=== PATIENT | male | born 1960 | race African-American/Black ===

== ENCOUNTER 2017-05-05 08:12 | Outpatient (CLI) | payer MEDICARE, MEDICAID | END 2017-05-05 08:13 | disposition home or self-care (01) | LOC: DI 08:12 | PROVIDERS: ATTEND Internal Medicine Cardiovascular Disease | DX: I50.22 Chronic systolic (congestive) heart failure (principal); R91.8 Other nonspecific abnormal finding of lung field; M25.522 Pain in left elbow; M19.011 Primary osteoarthritis, right shoulder | CPT/HCPCS: 71046; 93306 ==

== ENCOUNTER 2017-05-05 09:11 | Outpatient (CLI) | payer MEDICARE, MEDICAID ==
--- NOTE | 2017-05-05 10:35 | XRAY Report ---
DATE OF SERVICE: 05/05/2017 TWO-VIEW CHEST: 05/05/2017 CLINICAL INDICATION: Chest pressure, pain. No previous chest x-rays available for comparison. FINDINGS: The cardiac silhouette is within normal limits. The lungs are clear. No effusion or pneumothorax is present. IMPRESSION: Normal chest. TD: 05/05/2017 11:34
--- NOTE | 2017-05-05 10:41 | XRAY Report ---
DATE OF SERVICE: 05/05/2017 TWO-VIEW RIGHT SHOULDER: 05/05/2017 CLINICAL INDICATION: Pain. FINDINGS: Frontal and lateral views of the right shoulder demonstrate posttraumatic changes of previous proximal humeral fracture. The humeral head is high riding, compatible with chronic rotator cuff tear. Degenerative changes are seen in the glenohumeral and acromioclavicular joints. IMPRESSION: Previous proximal humeral fracture, with posttraumatic changes and likely chronic rotator cuff tear. TD: 05/05/2017 11:35
--- NOTE | 2017-05-05 10:41 | XRAY Report ---
DATE OF SERVICE: 05/05/2017 TWO-VIEW LEFT ELBOW: 05/05/2017 CLINICAL INDICATION: Pain. FINDINGS: Frontal and lateral views of the left elbow demonstrate no evidence of fracture or dislocation. No effusion is present. No foreign body is seen in the soft tissues. A tiny olecranon enthesophyte is incidentally noted. IMPRESSION: No evidence of fracture. TD: 05/05/2017 11:37
== END 2017-05-05 09:12 | disposition home or self-care (01) ==
LOC: DI 09:11
PROVIDERS: ATTEND Family Medicine
DX: R91.8 Other nonspecific abnormal finding of lung field (principal); M25.522 Pain in left elbow; M19.011 Primary osteoarthritis, right shoulder
CPT/HCPCS: 71046

== ENCOUNTER 2017-05-12 12:01 | Outpatient (CLI) | payer MEDICARE, MEDICAID ==
--- NOTE | 2017-05-12 17:05 | CT Report ---
EXAM: RIGHT SHOULDER CT WITHOUT CONTRAST EXAM DATE: 05/12/2017 01:07 PM. CLINICAL HISTORY: Right anterior shoulder pain. Previous humeral fracture. COMPARISON: Right shoulder radiography from 05/05/2017. TECHNIQUE: Thin-section axial images were acquired of the shoulder without contrast. Post-processing: Oblique coronal and sagittal reformats. Other: None. In accordance with CT protocol optimization, one or more of the following dose reduction techniques w ere utilized for this exam: automated exposure control, adjustment of mA and/or KV based on patient s ize, or use of iterative reconstructive technique. FINDINGS: There is a chronic healed fracture, which involves the anatomic neck, superolateral aspect of the hum eral head, greater tuberosity, lesser tuberosity, bicipital groove, and surgical neck of the humerus. There is varus deformity at the surgical neck of the humerus. Slight cortical irregularity at the ar ticular surface of the humeral head. Small marginal osteophytes of the glenoid. Small subcortical cysts at the anterior and inferior aspec ts of the glenoid. No glenohumeral joint subluxation or effusion. Chondrocalcinosis at the glenohumeral joint. Acromioclavicular Region: The patient has a type II acromion. Mild acromioclavicular joint osteoarthr itis. Musculature: Normal. No fatty atrophy. Other: There is an approximately 6 x 4 mm calcified subpleural granuloma at the anterior aspect of th e right upper lobe. Tiny 2 mm granuloma at the lateral aspect of the right upper lobe. Small 4 mm non calcified nodule at the anterior lateral aspect of the right middle lobe area and there is a 5 mm non calcified nodule near the minor fissure of the right lung. There are four 3-4 mm noncalcified nodules also near the minor fissure of the right lung. There is a 6 x 3 mm noncalcified nodule at the superi or segment of the right lower lobe. IMPRESSION: 1. Chronic healed fracture involving the anatomic neck, surgical neck, humeral head, greater tuberosi ty, lesser tuberosity, and bicipital groove of the proximal humerus. There is residual varus deformit y at the surgical neck of the humerus. Residual slight cortical irregularity at the articular surface of the humeral head. 2. Degenerative osteophytes and subcortical cysts at the glenoid. Chondrocalcinosis at the glenohumer al joint. 3. Incidental finding of multiple calcified and noncalcified nodules at the right lung, which most li yeimi represent granulomas. [facility]CULOSKE[facility] SECTION Referring Provider Line: [phone] SITE ID: [id number]
== END 2017-05-12 12:02 | disposition home or self-care (01) ==
LOC: DI 12:01
PROVIDERS: ATTEND Orthopaedic Surgery
DX: M21.821 Other specified acquired deformities of right upper arm (principal); M19.011 Primary osteoarthritis, right shoulder; M11.211 Other chondrocalcinosis, right shoulder

== ENCOUNTER 2017-05-18 08:18 | Outpatient (CLI) | payer MEDICARE, MEDICAID ==
[2017-05-18 13:06] LABS: BASOPHILS # (AUTO) 0.1 10^3/uL (0.0-0.1); BASOPHILS % (AUTO) 3.1 %; EOSINOPHILS # (AUTO) 0.2 10^3/uL (0.0-0.7); EOSINOPHILS % (AUTO) 5.1 %; HGB - HEMOGLOBIN 13.4 g/dL (14.0-18.0); LYMPHOCYTES # (AUTO) 1.2 10^3/uL (1.5-3.5); LYMPHOCYTES % (AUTO) 24.5 %; MEAN CORPUSCULAR HEMOGLOBIN 29.6 pg (27.0-31.0); MEAN CORPUSCULAR HGB CONC 34.4 g/dL (32.0-36.0); MEAN PLATELET VOLUME 8.6 fL (7.4-11.4); MONOCYTES # (AUTO) 0.5 10^3/uL (0.0-1.0); MONOCYTES % (AUTO) 10.2 %; NEUTROPHILS # (AUTO) 2.7 10^3/uL (1.5-6.6); NEUTROPHILS % (AUTO) 57.1 %; PLT - PLATELET COUNT 179 10^3/uL (130-450); RED BLOOD COUNT 4.53 10^6/uL (4.70-6.10); RED CELL DISTRIBUTION WIDTH 12.6 % (12.0-15.0); WHITE BLOOD COUNT 4.7 x10^3/uL (4.8-10.8)
[2017-05-18 13:26] LABS: ALBUMIN/GLOBULIN RATIO 1.2 (1.0-2.2); ALKALINE PHOSPHATASE 61 IU/L (42-121); ALT ALANINE AMINOTRANSFERASE 35 IU/L (10-60); AST ASPARTATE AMINOTRANSFERASE 33 IU/L (10-42); BILIRUBIN,TOTAL 0.7 mg/dL (0.2-1.0); BUN - BLOOD UREA NITROGEN 9 mg/dL (6-20); CALCIUM 9.1 mg/dL (8.5-10.3); CARBON DIOXIDE - CO2 25 mmol/L (21-32); CHLORIDE 98 mmol/L (101-111); CHOL/HDL RATIO 3.8 (<5.0); CHOLESTEROL 145 mg/dL; GFR - MDRD 94 (>89); GLUCOSE 112 mg/dL (70-100); HDL CHOLESTEROL 38 mg/dL; LDL CHOLESTEROL,CALCULATED 77 mg/dL; SODIUM 131 mmol/L (135-145); TOTAL PROTEIN 7.4 g/dL (6.7-8.2); URIC ACID 8.3 mg/dL (2.6-7.2); VLDL CHOLESTEROL 30 mg/dL
== END 2017-05-18 08:19 | disposition home or self-care (01) ==
LOC: LAB.N 08:18
PROVIDERS: ATTEND Family Medicine
DX: E66.9 Obesity, unspecified (principal); I50.9 Heart failure, unspecified; M19.90 Unspecified osteoarthritis, unspecified site; R93.8 Abnormal findings on diagnostic imaging of other specified body structures; Z79.01 Long term (current) use of anticoagulants
CPT/HCPCS: 36415; 80053; 80061; 83721; 84443; 84550; 85025

== ENCOUNTER 2017-06-17 10:51 | Outpatient (CLI) | payer MEDICARE ==
--- NOTE | 2017-06-17 15:49 | XRAY Report ---
THREE VIEW LUMBAR SPINE: 06/17/2017 CLINICAL INDICATION: Pain. FINDINGS: AP, lateral, coned down views of the lumbar spine demonstrate moderate degenerative disk and facet disease, with disk space narrowing worst at L4-L5. There is no evidence of compression fracture. The bowel gas pattern is normal. IMPRESSION: MODERATE DEGENERATIVE CHANGES. TD: 06/17/2017 15:48
== END 2017-06-17 10:52 | disposition home or self-care (01) ==
LOC: DI.N 10:51
PROVIDERS: ATTEND Family Medicine
DX: M51.36 Other intervertebral disc degeneration, lumbar region (principal); M47.896 Other spondylosis, lumbar region
CPT/HCPCS: 72100

== ENCOUNTER 2017-10-07 11:42 | Outpatient (CLI) | payer MEDICARE, MEDICAID ==
--- NOTE | 2017-10-07 12:39 | XRAY Report ---
Procedure Date: 10/07/2017 Accession Number: [id number] / [id number] Procedure: XRN - Knee 3 View RT CPT Code: FULL RESULT: EXAM: Knee 3 View RT DATE: 10/07/2017 11:55 AM CLINICAL HISTORY: KNEE PAIN, RIGHT COMPARISON: None. TECHNIQUE: 3 views. FINDINGS: Bones: No fracture. Joints: Moderately large suprapatellar effusion. Advanced tricompartmental degenerative change with joint space narrowing, sclerosis, and spurring. Soft Tissues: Vascular calcification. IMPRESSION: Advanced tricompartmental degenerative change right knee with moderately large suprapatellar effusion. [facility]
== END 2017-10-07 11:43 | disposition home or self-care (01) ==
LOC: DI.N 11:42
PROVIDERS: ATTEND Family Medicine
DX: M17.11 Unilateral primary osteoarthritis, right knee (principal); M25.461 Effusion, right knee

== ENCOUNTER 2017-10-25 09:30 | Outpatient (CLI) | payer MEDICARE, MEDICAID ==
[2017-10-25 13:57] LABS: HB2 TOTAL 14.3 g/dL; HEMOGLOBIN A1C 0.53 g/dL; HEMOGLOBIN A1C % 5.5 % (4.6-6.2)
[2017-10-25 14:13] LABS: CALCIUM 9.1 mg/dL (8.5-10.3); CREATININE 1.1 mg/dL (0.6-1.2)
== END 2017-10-25 09:31 | disposition home or self-care (01) ==
LOC: LAB.N 09:30
PROVIDERS: ATTEND Family Medicine
DX: R73.01 Impaired fasting glucose (principal); E66.9 Obesity, unspecified; I50.9 Heart failure, unspecified
CPT/HCPCS: 36415; 80048; 83036

== ENCOUNTER 2018-01-25 13:37 | Emergency (ER) | payer MEDICARE, MEDICAID ==
[2018-01-25] MEDS ORDERED: PHENYLEPHRINE 10 MG/ML VIAL IC STA (15:14)
[2018-01-25 15:39] LABS: BILIRUBIN,URINE NEGATIVE (NEGATIVE); GLUCOSE, URINE (UA) NEGATIVE (NEGATIVE); KETONES,URINE (UA) NEGATIVE (NEGATIVE); LEUKOCYTE ESTERASE, URINE NEGATIVE (NEGATIVE); NITRITE,URINE NEGATIVE (NEGATIVE); OCCULT BLOOD,URINE SMALL (NEGATIVE); PROTEIN,URINE NEGATIVE (NEGATIVE); UROBILINOGEN,URINE 0.2 (NORMAL) E.U./dL (NORMAL)
[2018-01-25 15:47] LABS: BACTERIA,URINE None Seen /HPF (None Seen); CLARITY,URINE CLEAR (CLEAR); SQUAMOUS EPITHELIAL CELL,UR NONE SEEN (<= Few)
--- NOTE | 2018-01-25 17:59 | ED Physician Documentation ---
History of Present Illness - Stated complaint Stated Complaint: MALE - Chief complaint Chief Complaint: General - History obtained from History obtained from: Patient - History of Present Illness Timing: How many hours ago (9) Pain level max: 5 Pain level now: 5 Quality: tight Radiates to: no radiation Improved by: nothing Associated symptoms: nothing - Treatment prior to arrival Treatment prior to arrival: ice pack - Additonal information Additional information: Pt stated woke up at 0600 today with an erection that won't go away after he masturbated. He stated a week ago this happened but only lasted 40 minutes. He denies any sickle cell disease or trait or leukemia. Denies taking viagra or other medications for erections. States he takes vitamin E 2-4 thousand mg daily. Denies any trauma. Review of Systems Ten Systems: 10 systems reviewed and negative Constitutional: denies: Fever, Myalgias GI: denies: Abdominal Pain, Abdominal Swelling, Nausea, Vomiting : denies: Dysuria, Frequency, Hesitancy, Unable to Void, Incontinent, Hematuria, Discharge, Testicular pain, Testicular mass Skin: denies: Rash, Lesions Musculoskeletal: denies: Back pain Neurologic: denies: Generalized weakness Endocrine: denies: Polyuria Immunocompromised: denies: Immunocompromised, HIV/AIDS PD PAST MEDICAL HISTORY - Past Medical History Past Medical History: Yes Cardiovascular: Congestive heart failure, Hypertension, [place] Respiratory: None Neuro: None Endocrine/Autoimmune: None GI: None : None HEENT: None Psych: None Musculoskeletal: Osteoarthritis Derm: None - Past Surgical History Past Surgical History: Yes Ortho: Other - Present Medications Home Medications: Ambulatory Orders Medication Instructions Recorded Confirmed RX: Diclofenac Sodium 01/25/18 RX: Enalapril Maleate [Vasotec] 01/25/18 RX: Furosemide 01/25/18 01/25/18 RX: Methocarbamol [Robaxin] 01/25/18 RX: Metoprolol Succinate 01/25/18 [Kapspargo Sprinkle] RX: Spironolactone 01/25/18 RX: Vitamin E 01/25/18 - Allergies Allergies/Adverse Reactions: Allergies Allergy/AdvReac Type Severity Reaction Status Date / Time No Known Drug Allergies Allergy Verified 01/25/18 14:04 - Social History Does the pt smoke?: No Smoking Status: Never smoker Does the pt drink ETOH?: Yes ETOH Use: Beer Does the pt have substance abuse?: No Substance Use and Type: Marijuana - Family History Family history: reports: Non contributory - Immunizations Immunizations are current?: Yes - POLST Patient has POLST: No PD ED PE NORMAL - Vitals Vital signs reviewed: Yes - General General: Alert and oriented X 3, No acute distress, Well developed/nourished - HEENT HEENT: Moist mucous membranes - Neck Neck: Supple, no meningeal sign - Cardiac Cardiac: RRR, No murmur - Respiratory Respiratory: No respiratory distress, Clear bilaterally - Abdomen Abdomen: Normal bowel sounds, Soft, Non tender, Non distended - Male Male : Mirror Inspector present, Other (+priapism. No lesions, drainage nor erythema of the penis. No testicular tenderness. No scrotal swelling.) - Back Back: No CVA TTP - Derm Derm: Warm and dry, No rash - Extremities Extremities: No deformity - Neuro Neuro: Alert and oriented X 3 - Psych Psych: Normal mood, Normal affect Results - Vitals Vitals: Vital Signs - 24 hr 01/25/18 01/25/18 01/25/18 14:02 15:36 15:40 Temperature 36.4 C L Heart Rate 95 102 H 103 H Respiratory 20 Rate Blood Pressure 135/82 H 149/105 H 146/99 H O2 Saturation 97 01/25/18 01/25/18 15:44 15:55 Temperature Heart Rate 102 H 102 H Respiratory Rate Blood Pressure 146/101 H 156/101 H O2 Saturation Oxygen O2 Source Room air - Labs Labs: Laboratory Tests 01/25/18 15:28 Urine Color LT. YELLOW Urine Clarity CLEAR Urine pH 6.0 Ur Specific [place] <=1.005 Urine Protein NEGATIVE Urine Glucose (UA) NEGATIVE Urine Ketones NEGATIVE Urine Occult Blood SMALL H Urine Nitrite NEGATIVE Urine Bilirubin NEGATIVE Urine Urobilinogen 0.2 (NORMAL) Ur Leukocyte Esterase NEGATIVE Urine RBC 6-10 H Urine WBC 0-3 Ur Squamous Epith Cells NONE SEEN Urine Bacteria None Seen Ur Microscopic Review INDICATED Urine Culture Comments NOT INDICATED PD MEDICAL DECISION MAKING - ED course Complexity details: re-evaluated patient (9703 phenyephrine solution mixed by pharmacist injected 0.5 ml every 5 minutes at 4 different sites of corpus cavernosum. Icepack also applied prior to procedure and in between procedure. Pt tolerated procedure while cardiac monitoring and b/p continuously checked by RN at the bedside. No change in pt's priapism. 163 Pt states his penis still has an erection. He wants to take his b/p meds. Instructed only sips of water and should be NPO for possible urology procedure. 1747 States erection unchanged. Pt does not appear to be in any distress; not requiring any pain meds and pt not asking for pain meds. He only wants ice pack.), considered differential (idiopa thic priapism, penile circulation insufficiency, penile clots), d/w patient (urologist recommendation of injection with phenyephrine and icepack he agreed. Also informed of transfer if this does not work. Pt also agreed.) - Consults Consults: Consulted (name) (145: Spoke to dr Shen, urologist from [facility]. case discussed. he suggested phenylephrine solution mixed with ns by pharmacist; injection into cavernosum. He stated most likely it may not work so pt might need a surgical procedure and recommended [facility] Discussed case with (with urologist from [facility], Dr Benoit, she stated pt needs to be seen by a urologist who can drain pt's penile and give the pheynlephrine. Stated they are a trauma center and this case is not trauma. She stated pt needs a urologist to see the pt in the E.R. for drainage. She suggested [place] or [facility] Request qa consultant evaluate patient ([address] Spoke to ED physician Dr Cantu; case discussed in details. He accepted pt transfer as they have a urologist who can see the patient in their E.R. and do the penile drainage and injections. Pt was informed about this and agreed to transfer to [place].), Request qa consultant accept pt in transfer - Sepsis Event Vital Signs: Vital Signs - 24 hr 01/25/18 01/25/18 01/25/18 14:02 15:36 15:40 Temperature 36.4 C L Heart Rate 95 102 H 103 H Respiratory 20 Rate Blood Pressure 135/82 H 149/105 H 146/99 H O2 Saturation 97 01/25/18 01/25/18 15:44 15:55 Temperature Heart Rate 102 H 102 H Respiratory Rate Blood Pressure 146/101 H 156/101 H O2 Saturation Oxygen O2 Source Room air Departure - Departure Disposition: 02 Transfer Acute Care Hosp Clinical Impression: Priapism Condition: Fair
[2018-01-25 19:51] VITALS: BP 145/97
== END 2018-01-25 19:59 | disposition short-term general hospital (02) ==
LOC: ED 13:37
DX: N48.30 Priapism, unspecified (principal); I10 Essential (primary) hypertension; I50.9 Heart failure, unspecified
CPT/HCPCS: 81001; 81003; 87086; 99283; 99284

== ENCOUNTER 2018-09-04 07:38 | Outpatient (CLI) | payer MEDICARE, MEDICAID ==
[2018-09-04 12:26] LABS: ALBUMIN 4.1 g/dL (3.2-5.5); ALBUMIN/GLOBULIN RATIO 1.3 (1.0-2.2); ALKALINE PHOSPHATASE 70 IU/L (42-121); ALT ALANINE AMINOTRANSFERASE 58 IU/L (10-60); AST ASPARTATE AMINOTRANSFERASE 87 IU/L (10-42); BILIRUBIN,TOTAL 0.7 mg/dL (0.2-1.0); BUN - BLOOD UREA NITROGEN 13 mg/dL (6-20); CALCIUM 9.1 mg/dL (8.5-10.3); CARBON DIOXIDE - CO2 24 mmol/L (21-32); CHLORIDE 97 mmol/L (101-111); CHOL/HDL RATIO 3.8 (<5.0); CHOLESTEROL 174 mg/dL; CREATININE 1.1 mg/dL (0.6-1.2); GFR - MDRD 84 (>89); GLUCOSE 115 mg/dL (70-100); HDL CHOLESTEROL 46 mg/dL; SODIUM 131 mmol/L (135-145); TOTAL PROTEIN 7.2 g/dL (6.7-8.2)
[2018-09-04 12:55] LABS: BASOPHILS % (AUTO) 1.4 %; EOSINOPHILS # (AUTO) 0.2 10^3/uL (0.0-0.7); EOSINOPHILS % (AUTO) 5.9 %; HGB - HEMOGLOBIN 12.2 g/dL (14.0-18.0); LYMPHOCYTES # (AUTO) 1.4 10^3/uL (1.5-3.5); LYMPHOCYTES % (AUTO) 49.6 %; MEAN CORPUSCULAR HEMOGLOBIN 30.4 pg (27.0-31.0); MEAN CORPUSCULAR HGB CONC 32.8 g/dL (32.0-36.0); MEAN CORPUSCULAR VOLUME 92.7 fL (80.0-94.0); MEAN PLATELET VOLUME 8.7 fL (7.4-11.4); MONOCYTES # (AUTO) 0.3 10^3/uL (0.0-1.0); MONOCYTES % (AUTO) 10.6 %; NEUTROPHILS # (AUTO) 0.9 10^3/uL (1.5-6.6); NEUTROPHILS % (AUTO) 32.5 %; PLT - PLATELET COUNT 151 10^3/uL (130-450); RED BLOOD COUNT 4.01 10^6/uL (4.70-6.10); RED CELL DISTRIBUTION WIDTH 13.3 % (12.0-15.0); WHITE BLOOD COUNT 2.9 x10^3/uL (4.8-10.8)
[2018-09-04 12:56] LABS: LDL CHOLESTEROL,DIRECT 54 mg/dL; LDLD/HDL RATIO 1.2 (<3.6)
[2018-09-04 13:35] LABS: PLATELET ESTIMATE, MANUAL NORMAL (130-450,000) (NORMAL); PLATELET MORPHOLOGY NORMAL APPEARANCE (NORMAL); RBC MORPHOLOGY (MULTIPLE) NORMAL APPEARANCE (NORMAL)
== END 2018-09-04 07:39 | disposition home or self-care (01) ==
LOC: LAB.WCP 07:38
PROVIDERS: ATTEND Family Medicine
DX: I50.9 Heart failure, unspecified (principal)
CPT/HCPCS: 36415; 80053; 80061; 83721; 84443; 85025

== ENCOUNTER 2018-10-02 07:24 | Outpatient (CLI) | payer MEDICARE, MEDICAID ==
[2018-10-02 16:01] LABS: ABSOLUTE RETICS # AUTO 0.044 10^6/uL (0.020-0.110); BASOPHILS % (AUTO) 1.1 %; EOSINOPHILS # (AUTO) 0.1 10^3/uL (0.0-0.7); LYMPHOCYTES # (AUTO) 1.1 10^3/uL (1.5-3.5); LYMPHOCYTES % (AUTO) 33.4 %; MEAN CORPUSCULAR HEMOGLOBIN 30.9 pg (27.0-31.0); MEAN CORPUSCULAR VOLUME 93.5 fL (80.0-94.0); MEAN PLATELET VOLUME 8.8 fL (7.4-11.4); MEAN RETIC VALUE 110.1; MONOCYTES # (AUTO) 0.5 10^3/uL (0.0-1.0); MONOCYTES % (AUTO) 13.9 %; NEUTROPHILS # (AUTO) 1.5 10^3/uL (1.5-6.6); NEUTROPHILS % (AUTO) 47.6 %; PLT - PLATELET COUNT 166 10^3/uL (130-450); RED BLOOD COUNT 3.87 10^6/uL (4.70-6.10); RED CELL DISTRIBUTION WIDTH 12.9 % (12.0-15.0); WHITE BLOOD COUNT 3.2 x10^3/uL (4.8-10.8)
[2018-10-02 16:04] LABS: FERRITIN 951.6 ng/mL (23.9-336.2)
[2018-10-02 16:08] LABS: FOLATE 4.74 ng/mL (5.90 - >24.8)
[2018-10-02 16:14] LABS: % IRON SATURATION 60 % (20-50); IRON 203 ug/dL (45-182); TOTAL IRON BINDING CAPACITY 340 ug/dL (250-450); TRANSFERRIN 243 mg/dL (180-329)
[2018-10-03 11:56] LABS: HEPATITIS B SURFACE ANTIGEN NON-REACTIVE (NON-REACTIVE)
[2018-10-03 13:57] LABS: HEPATITIS C ANTIBODY NON-REACTIVE (NON-REACTIVE)
== END 2018-10-02 07:25 | disposition home or self-care (01) ==
LOC: LAB.WCP 07:24
PROVIDERS: ATTEND Family Medicine
DX: D64.9 Anemia, unspecified (principal); R74.8 Abnormal levels of other serum enzymes
CPT/HCPCS: 36415; 82607; 82728; 82746; 83540; 84466; 85025; 85044; 86317; 86704; 86709; 86803; 87340

== ENCOUNTER 2020-05-20 08:00 | Outpatient (CLI) | payer MEDICARE, MEDICAID ==
[2020-05-20 13:06] LABS: ABSOLUTE RETICS # AUTO 0.057 10^6/uL (0.020-0.110); BASOPHILS % (AUTO) 1.1 %; EOSINOPHILS % (AUTO) 3.4 %; HGB - HEMOGLOBIN 12.4 g/dL (14.0-18.0); LYMPHOCYTES % (AUTO) 42.8 %; MEAN CORPUSCULAR HEMOGLOBIN 31.2 pg (27.0-31.0); MEAN CORPUSCULAR HGB CONC 33.7 g/dL (32.0-36.0); MEAN CORPUSCULAR VOLUME 92.5 fL (80.0-94.0); MEAN PLATELET VOLUME 9.9 fL (7.4-11.4); NEUTROPHILS % (AUTO) 35.3 %; PLT - PLATELET COUNT 175 10^3/uL (130-450); RED BLOOD COUNT 3.98 10^6/uL (4.70-6.10); RED CELL DISTRIBUTION WIDTH 11.7 % (12.0-15.0); WHITE BLOOD COUNT 2.6 x10^3/uL (4.8-10.8)
[2020-05-20 13:39] LABS: ABNORMAL LYMPHS % (MANUAL) 0 %; BAND NEUTROPHILS % (MANUAL) 0 %
[2020-05-20 13:44] LABS: BASOPHILS % (MANUAL) 1 %; EOSINOPHILS # (MANUAL) 0.1 10^3/uL (0-0.7); LYMPHOCYTES # (MANUAL) 1.2 10^3/uL (1.5-3.5); LYMPHOCYTES % (MANUAL) 48 %; MONOCYTES # (MANUAL) 0.3 10^3/uL (0.0-1.0)
[2020-05-20 13:45] LABS: DIFFERENTIAL COMMENT MANUAL DIFFERENTIAL; PLATELET ESTIMATE, MANUAL NORMAL (130-450,000) (NORMAL); PLATELET MORPHOLOGY NORMAL APPEARANCE (NORMAL); RBC MORPHOLOGY (MULTIPLE) NORMAL APPEARANCE (NORMAL)
[2020-05-20 14:40] LABS: % IRON SATURATION 26 % (20-50); ALBUMIN 4.2 g/dL (3.2-5.5); ALBUMIN/GLOBULIN RATIO 1.3 (1.0-2.2); ALKALINE PHOSPHATASE 75 IU/L (42-121); ALT ALANINE AMINOTRANSFERASE 34 IU/L (10-60); AST ASPARTATE AMINOTRANSFERASE 70 IU/L (10-42); BILIRUBIN,TOTAL 0.5 mg/dL (0.2-1.0); BUN - BLOOD UREA NITROGEN 10 mg/dL (6-20); CALCIUM 9.6 mg/dL (8.5-10.3); CARBON DIOXIDE - CO2 20 mmol/L (21-32); CHLORIDE 92 mmol/L (101-111); CHOL/HDL RATIO 2.4 (<5.0); CHOLESTEROL 154 mg/dL; CREATININE 0.8 mg/dL (0.6-1.2); GLUCOSE 81 mg/dL (70-100); HDL CHOLESTEROL 63 mg/dL; IRON 112 ug/dL (45-182); LDL CHOLESTEROL,CALCULATED 53 mg/dL; LDL/HDL RATIO 0.8 (<3.6); TOTAL IRON BINDING CAPACITY 427 ug/dL (250-450); TOTAL PROTEIN 7.4 g/dL (6.7-8.2); TRANSFERRIN 305 mg/dL (180-329); URIC ACID 7.1 mg/dL (2.6-7.2); VLDL CHOLESTEROL 38 mg/dL
[2020-05-20 15:15] LABS: FERRITIN 561.9 ng/mL (23.9-336.2)
== END 2020-05-20 23:59 | disposition home or self-care (01) ==
LOC: LAB.WCP 08:00
PROVIDERS: ATTEND Internal Medicine
DX: Z01.84 Encounter for antibody response examination (principal); I50.9 Heart failure, unspecified; Z12.5 Encounter for screening for malignant neoplasm of prostate; D64.9 Anemia, unspecified; M1A.029 Idiopathic chronic gout, unspecified elbow; R50.9 Fever, unspecified; I42.8 Other cardiomyopathies
CPT/HCPCS: 36415; 80053; 80061; 82607; 82728; 83540; 84443; 84466; 84550; 85025; 85045; 86769; G0103; 83721; 84153

== ENCOUNTER 2021-07-07 08:42 | Outpatient (CLI) | payer MEDICARE, MEDICAID ==
[2021-07-07 11:53] LABS: BASOPHILS % (AUTO) 1.2 %; EOSINOPHILS # (AUTO) 0.1 10^3/uL (0.0-0.7); EOSINOPHILS % (AUTO) 2.9 %; HCT - HEMATOCRIT 37.7 % (42.0-52.0); HGB - HEMOGLOBIN 13.2 g/dL (14.0-18.0); LYMPHOCYTES # (AUTO) 0.5 10^3/uL (1.5-3.5); LYMPHOCYTES % (AUTO) 30.1 %; MEAN CORPUSCULAR HEMOGLOBIN 30.4 pg (27.0-31.0); MEAN CORPUSCULAR VOLUME 86.9 fL (80.0-94.0); MEAN PLATELET VOLUME 11.1 fL (7.4-11.4); MONOCYTES # (AUTO) 0.3 10^3/uL (0.0-1.0); MONOCYTES % (AUTO) 19.7 %; NEUTROPHILS # (AUTO) 0.8 10^3/uL (1.5-6.6); NEUTROPHILS % (AUTO) 46.1 %; PLT - PLATELET COUNT 102 10^3/uL (130-450); RED BLOOD COUNT 4.34 10^6/uL (4.70-6.10); RED CELL DISTRIBUTION WIDTH 10.8 % (12.0-15.0)
[2021-07-07 12:23] LABS: SLIDE REVIEW? Indicated
[2021-07-07 12:41] LABS: THYROID STIMULATING HORMONE 2.31 uIU/mL (0.34-5.60)
[2021-07-07 12:43] LABS: CREATININE,URINE 163.8 mg/dL; MICROALBUM/CREATININE RATIO,UR 4.3 ug/mg (<30.0); MICROALBUMIN,URINE 0.7 mg/dL (0-300.0)
[2021-07-07 12:48] LABS: FERRITIN 399.6 ng/mL (23.9-336.2)
[2021-07-07 12:54] LABS: % IRON SATURATION 49 % (20-50); ALBUMIN 4.2 g/dL (3.2-5.5); ALBUMIN/GLOBULIN RATIO 1.3 (1.0-2.2); ALKALINE PHOSPHATASE 95 IU/L (42-121); ALT ALANINE AMINOTRANSFERASE 34 IU/L (10-60); AST ASPARTATE AMINOTRANSFERASE 66 IU/L (10-42); BILIRUBIN,TOTAL 0.5 mg/dL (0.2-1.0); BUN - BLOOD UREA NITROGEN 11 mg/dL (6-20); CALCIUM 9.2 mg/dL (8.5-10.3); CARBON DIOXIDE - CO2 24 mmol/L (21-32); CHLORIDE 83 mmol/L (101-111); CHOLESTEROL 136 mg/dL; CREATININE 0.8 mg/dL (0.6-1.2); ESTIMATED AVERAGE GLUCOSE 120 mg/dL (70-100); GFR - MDRD 120 (>89); GLUCOSE 102 mg/dL (70-100); HDL CHOLESTEROL 68 mg/dL; HEMOGLOBIN A1c% 5.8 % (4.27-6.07); IRON 204 ug/dL (45-182); LDL CHOLESTEROL,CALCULATED 29 mg/dL; LDL/HDL RATIO 0.4 (<3.6); POTASSIUM 4.5 mmol/L (3.5-5.0); TOTAL IRON BINDING CAPACITY 414 ug/dL (250-450); TOTAL PROTEIN 7.5 g/dL (6.7-8.2); TRANSFERRIN 296 mg/dL (180-329); TRIGLYCERIDES 195 mg/dL; VLDL CHOLESTEROL 39 mg/dL
[2021-07-07 14:09] LABS: FECAL OCCULT BLOOD (FIT) NEGATIVE (NEGATIVE)
[2021-07-08 12:38] LABS: WHITE BLOOD COUNT 1.7 x10^3/uL (4.8-10.8)
[2021-07-08 12:40] LABS: SODIUM 118 mmol/L (135-145)
== END 2021-07-07 08:43 | disposition home or self-care (01) ==
LOC: LAB.N 08:42
PROVIDERS: ATTEND Internal Medicine
DX: I42.8 Other cardiomyopathies (principal); D64.9 Anemia, unspecified; R73.01 Impaired fasting glucose; Z12.5 Encounter for screening for malignant neoplasm of prostate; M1A.029 Idiopathic chronic gout, unspecified elbow; D70.9 Neutropenia, unspecified
CPT/HCPCS: 36415; 80053; 80061; 82043; 82274; 82570; 82607; 82728; 83020; 83036; 83540; 84443; 84466; 84550; 85014; 85025; 85041; 86618; G0103; 81599; 83721; 84153; 87389

== ENCOUNTER 2021-07-08 07:42 | Outpatient (CLI) | payer MEDICARE, MEDICAID ==
[2021-07-08 11:55] LABS: BILIRUBIN,URINE NEGATIVE (NEGATIVE); GLUCOSE, URINE (UA) NEGATIVE (NEGATIVE); KETONES,URINE (UA) NEGATIVE (NEGATIVE); LEUKOCYTE ESTERASE, URINE NEGATIVE (NEGATIVE); NITRITE,URINE NEGATIVE (NEGATIVE); OCCULT BLOOD,URINE NEGATIVE (NEGATIVE); PROTEIN,URINE NEGATIVE (NEGATIVE); UROBILINOGEN,URINE 1 (NORMAL) E.U./dL (NORMAL)
[2021-07-08 12:06] LABS: BACTERIA,URINE Rare /HPF (None Seen); CLARITY,URINE CLEAR (CLEAR); RBC,URINE None Seen /HPF (0-5); SQUAMOUS EPITHELIAL CELL,UR RARE Squamous (<= Few); WBC,URINE 0-3 /HPF (0-3)
[2021-07-08 12:27] LABS: CALCIUM 9.4 mg/dL (8.5-10.3)
== END 2021-07-08 07:43 | disposition home or self-care (01) ==
LOC: LAB.N 07:42
PROVIDERS: ATTEND Nurse Practitioner Family
DX: E87.1 Hypo-osmolality and hyponatremia (principal)
CPT/HCPCS: 36415; 80048; 81001; 82570; 82575

== ENCOUNTER 2021-07-09 16:02 | Emergency (ER) | payer MEDICARE, MEDICAID ==
[2021-07-09] MEDS ORDERED: SODIUM CHLORIDE 0.9% 2,000 ML IV STA (17:48)
--- NOTE | 2021-07-09 18:01 | ED Physician Documentation ---
History of Present Illness - Stated complaint Stated Complaint: LOW SODIUM - Chief complaint Chief Complaint: General - History obtained from History obtained from: Patient - History of Present Illness Timing: Today Pain level max: 0 Pain level now: 0 - Additonal information Additional information: 61-year-old male history of heart failure, last EF was 45-50. He is on spironolactone and Lasix at home. Outpatient lab draw found to have sodium of 119. Patient is fully asymptomatic. No abdominal pain. No nausea or vomiting. No headache. No seizures. No altered mental status. Nothing makes it better or worse. Review of Systems Ten Systems: 10 systems reviewed and negative Constitutional: denies: Fever, Chills Ears: denies: Ear pain Nose: denies: Rhinorrhea / runny nose, Congestion Respiratory: denies: Cough GI: denies: Abdominal Pain, Nausea, Vomiting, Diarrhea Skin: denies: Rash Musculoskeletal: denies: Neck pain, Back pain Neurologic: denies: Headache PD PAST MEDICAL HISTORY - Past Medical History Cardiovascular: Congestive heart failure, Hypertension, [place] Respiratory: None Neuro: None Endocrine/Autoimmune: None GI: None : None HEENT: None Psych: None Musculoskeletal: Osteoarthritis Derm: None - Past Surgical History Past Surgical History: Yes Ortho: Other - Present Medications Home Medications: Ambulatory Orders Medication Instructions Recorded Confirmed Diclofenac Sodium 01/25/18 Enalapril Maleate [Vasotec] 01/25/18 Furosemide 01/25/18 01/25/18 Metoprolol Succinate [Kapspargo 01/25/18 Sprinkle] Spironolactone 01/25/18 Vitamin E (Dl,Tocopheryl Acet) 01/25/18 [Vitamin E] methocarbamoL [Robaxin] 01/25/18 Cyanocobalamin (Vitamin B-12) 1,000 mcg PO 01/02/19 [Vitamin B-12] Folic Acid 1 mg PO QID 01/02/19 01/02/19 Multivitamin [Multivitamins] 1 tab PO DAILY 01/02/19 01/02/19 - Allergies Allergies/Adverse Reactions: Allergies Allergy/AdvReac Type Severity Reaction Status Date / Time No Known Drug Allergies Allergy Verified 07/09/21 16:13 - Social History Does the pt smoke?: No Smoking Status: Never smoker Does the pt drink ETOH?: Yes Does the pt have substance abuse?: No - Immunizations Immunizations are current?: Yes - POLST Patient has POLST: No PD ED PE NORMAL - Vitals Vital signs reviewed: Yes - General General: Alert and oriented X 3, No acute distress, Well developed/nourished - HEENT HEENT: PERRL, Moist mucous membranes - Neck Neck: Supple, no meningeal sign - Cardiac Cardiac: RRR, Strong equal pulses - Respiratory Respiratory: No respiratory distress, Clear bilaterally - Abdomen Abdomen: Soft, Non tender, Non distended - Derm Derm: Warm and dry - Extremities Extremities: No edema, No calf tenderness / cord - Neuro Neuro: Alert and oriented X 3 - Psych Psych: Normal mood, Normal affect Results - Vitals Vitals: Vital Signs - 24 hr 07/09/21 07/09/21 07/09/21 16:08 18:22 22:21 Temperature 36.3 C L Heart Rate 77 73 81 Respiratory 14 15 18 Rate Blood Pressure 113/84 H 94/76 101/92 H O2 Saturation 97 100 98 Oxygen O2 Source Room air - Labs Labs: Laboratory Tests 07/09/21 07/09/21 07/09/21 18:03 18:03 20:50 WBC 2.6 L RBC 3.99 L Hgb 12.3 L Hct 34.4 L MCV 86.2 MCH 30.8 MCHC 35.8 RDW 10.8 L Plt Count 85 L MPV 9.7 Neut # (Auto) 1.3 L Lymph # (Auto) 0.7 L [place] # (Auto) 0.5 Eos # (Auto) 0.1 Baso # (Auto) 0.0 Absolute Nucleated RBC 0.00 Nucleated RBC % 0.0 Manual Slide Review Indicated WBC Morphology NORMAL APPEARANCE Platelet Estimate DECREASED (<130,000) Platelet Morphology NORMAL APPEARANCE RBC Morph Micro Appear NORMAL APPEARANCE Sodium 117 L* 121 L Potassium 3.9 3.7 Chloride 82 L 87 L Carbon Dioxide 24 22 Anion Gap 11.0 12.0 BUN 10 9 Creatinine 0.9 0.8 Estimated GFR (MDRD) 105 120 Glucose 100 92 Calcium 9.0 8.8 PD MEDICAL DECISION MAKING - ED course Complexity details: reviewed results, considered differential, d/w patient ED course: Patient with asymptomatic hyponatremia. He was given IV fluids and the Sodium is still low. We will continue hydration with saline. Likely that the hyponatremia is from his diuretics. There are no beds available in the hospital tonight, so he will be boarded in the emergency department and have his sodium rechecked in the morning. His normal sodium is between 128 and 130, suspect if he is to the mid 120s by morning he can likely go home. Patient will be signed out to the oncoming emergency department physician for further care. Departure - Departure Clinical Impression: Hyponatremia Condition: Stable
[2021-07-09 18:10] LABS: BASOPHILS % (AUTO) 0.4 %; EOSINOPHILS # (AUTO) 0.1 10^3/uL (0.0-0.7); EOSINOPHILS % (AUTO) 2.3 %; HCT - HEMATOCRIT 34.4 % (42.0-52.0); HGB - HEMOGLOBIN 12.3 g/dL (14.0-18.0); LYMPHOCYTES # (AUTO) 0.7 10^3/uL (1.5-3.5); LYMPHOCYTES % (AUTO) 27.4 %; MEAN CORPUSCULAR HEMOGLOBIN 30.8 pg (27.0-31.0); MEAN CORPUSCULAR HGB CONC 35.8 g/dL (32.0-36.0); MEAN CORPUSCULAR VOLUME 86.2 fL (80.0-94.0); MEAN PLATELET VOLUME 9.7 fL (7.4-11.4); MONOCYTES # (AUTO) 0.5 10^3/uL (0.0-1.0); MONOCYTES % (AUTO) 20.2 %; NEUTROPHILS # (AUTO) 1.3 10^3/uL (1.5-6.6); NEUTROPHILS % (AUTO) 49.7 %; PLT - PLATELET COUNT 85 10^3/uL (130-450); RED BLOOD COUNT 3.99 10^6/uL (4.70-6.10); RED CELL DISTRIBUTION WIDTH 10.8 % (12.0-15.0); WHITE BLOOD COUNT 2.6 x10^3/uL (4.8-10.8)
[2021-07-09 18:30] LABS: PLATELET ESTIMATE, MANUAL DECREASED (<130,000) (NORMAL); PLATELET MORPHOLOGY NORMAL APPEARANCE (NORMAL); RBC MORPHOLOGY (MULTIPLE) NORMAL APPEARANCE (NORMAL); SLIDE REVIEW? Indicated; WBC MORPHOLOGY (MULTIPLE) NORMAL APPEARANCE (NORMAL)
[2021-07-09 18:34] LABS: CREATININE 0.9 mg/dL (0.6-1.2); POTASSIUM 3.9 mmol/L (3.5-5.0)
[2021-07-09 21:06] LABS: CALCIUM 8.8 mg/dL (8.5-10.3); CREATININE 0.8 mg/dL (0.6-1.2); POTASSIUM 3.7 mmol/L (3.5-5.0)
[2021-07-09] MEDS ORDERED: SODIUM CHLORIDE 0.9% 1,000 ML IV STA (21:08)
[2021-07-10] MEDS ORDERED: SODIUM CHLORIDE 0.9% 1,000 ML IV STA ×2 (03:54→06:59)
[2021-07-10 06:15] LABS: CALCIUM 8.8 mg/dL (8.5-10.3); CREATININE 0.8 mg/dL (0.6-1.2)
--- NOTE | 2021-07-10 06:21 | ED Physician Documentation ---
ED Addendum - Addendum Addendum: Patient signed out to me at shift change by Dr. Gilman. Patient has a history of heart failure and is currently on Lasix and spironolactone. He was found to have significant hyponatremia on outpatient labs for the last several days.On presentation yesterday his sodium was 117.His previous sodium levels appear to be in the range of 128-1 31. He is asymptomatic. Treatment was initiated by Dr. Gilman with IV fluids. Plan to continue with IV fluids overnight and reassess sodium in the morning. If sodium level reaches mid 120s patient will likely be able to be discharged in the morning. 0623 - A.m. labs obtained and sodium remains at 121 which is similar to most recent check last night. Patient's sodium has only increased from 117-121. He remains asymptomatic, He does not appear to be fluid overloaded on exam and has no respiratory Complaints. Will give additional fluid bolus. Patient to be signed out to Dr. Block, morning ED physician to recheck sodium after additional fluid bolus.Unfortunately there are no medical beds available at would be for patient to be admitted.Patient is aware of plan.
--- NOTE | 2021-07-10 08:26 | XRAY Report ---
PROCEDURE: Chest 1 View X-Ray INDICATIONS: chest pain TECHNIQUE: One view of the chest was acquired. COMPARISON: 05/05/2017 FINDINGS: Surgical changes and devices: Patient is status post left shoulder reverse arthroplasty.. Lungs and pleura: No pleural effusions or pneumothorax. Calcified granuloma is seen in right upper l obe. No focal infiltrate. Left basilar atelectasis is seen. Mediastinum: Mediastinal contours appear normal. Heart size is normal. Bones and chest wall: No suspicious bony lesions. Old injury involving right proximal humerus is see n with chronic-appearing deformity. Overlying soft tissues appear unremarkable. IMPRESSION: No focal infiltrate, significant pleural effusion or pneumothorax. Suggestion of left basilar atelect asis. No significant discrepancies from pulmonary reading. Reviewed by: Jr Nunez MD on 07/10/2021 8:25 AM PDT Approved by: Jr Nunez MD on 07/10/2021 8:25 AM PDT Station ID: [id number]
[2021-07-10] MEDS ORDERED: MAGNESIUM SULFATE 2 GRAM 2 GM/50 ML BAG IV ONE (09:38)
[2021-07-10 10:59] LABS: BILIRUBIN,URINE NEGATIVE (NEGATIVE); GLUCOSE, URINE (UA) NEGATIVE (NEGATIVE); KETONES,URINE (UA) NEGATIVE (NEGATIVE); LEUKOCYTE ESTERASE, URINE NEGATIVE (NEGATIVE); NITRITE,URINE NEGATIVE (NEGATIVE); OCCULT BLOOD,URINE NEGATIVE (NEGATIVE); PROTEIN,URINE NEGATIVE (NEGATIVE); UROBILINOGEN,URINE 1 (NORMAL) E.U./dL (NORMAL)
[2021-07-10 11:02] LABS: CLARITY,URINE CLEAR (CLEAR)
[2021-07-10 12:09] LABS: CALCIUM 8.6 mg/dL (8.5-10.3); CREATININE 0.8 mg/dL (0.6-1.2); POTASSIUM 3.9 mmol/L (3.5-5.0)
[2021-07-10] MEDS ORDERED: SODIUM CHLORIDE 3% HYPERTONIC 100 ML IV SCH (13:00)
--- NOTE | 2021-07-10 15:03 | ED Physician Documentation ---
ED Addendum - Addendum Addendum: 07/10/21 15:00After change of shift, the patient has remained stable without any complications. He is awake and alert and conversant. He has had breakfast without any problems. The recheck of his electrolytes this morning showed the sodium to be increased slightly to 121. However still little bit lower than we would like to be comfortable for discharge. It is increasing however. He feels good otherwise. I presume his low sodium is from his diuretics. However we can check for other potential problems such as thyroid. You can check the urine sodium as well. I checked magnesium as well and it was low when he was given magnesium 2 g IV rider. He is maintained normal saline at 150 mils per hour. Rechecked with him again after several hours and he still feeling awake and alert in no problems. I feel at this point he is not really at risk for central pontine myelolysis and his baseline sodium is actually about 1 28-1 30. I felt a small amount of hypertonic saline at this point would be reasonable. He is given 100 mL of 3% saline. At this point we will continue the regular infusion and recheck labs in 4 hours. At this point if it is elevated into a reasonable level of it please 125 then I think he can be discharged with amendment of his diuretic regimen.
[2021-07-10 16:19] LABS: CREATININE 0.8 mg/dL (0.6-1.2)
[2021-07-10 17:16] VITALS: BP 121/78
== END 2021-07-10 18:38 | disposition home or self-care (01) ==
LOC: ED 16:02
DX: E87.1 Hypo-osmolality and hyponatremia (principal); I50.9 Heart failure, unspecified; Z79.899 Other long term (current) drug therapy
CPT/HCPCS: 36415; 80048; 81001; 81003; 83735; 84300; 84443; 85025; 87086; 96361; 96365; 96366; 99283

== ENCOUNTER 2021-07-16 08:35 | Outpatient (CLI) | payer MEDICARE, MEDICAID ==
[2021-07-16 12:04] LABS: BUN - BLOOD UREA NITROGEN < 5 mg/dL (6-20); CALCIUM 8.9 mg/dL (8.5-10.3); CARBON DIOXIDE - CO2 20 mmol/L (21-32); CHLORIDE 97 mmol/L (101-111); CREATININE 0.7 mg/dL (0.6-1.2); GFR - MDRD 140 (>89); GLUCOSE 118 mg/dL (70-100); POTASSIUM 4.2 mmol/L (3.5-5.0); SODIUM 130 mmol/L (135-145)
[2021-07-17 13:41] LABS: HIV AG/AB 4TH GEN NON-REACTIVE (NON-REACTIVE)
== END 2021-07-16 08:36 | disposition home or self-care (01) ==
LOC: LAB.N 08:35
PROVIDERS: ATTEND Internal Medicine
DX: E87.1 Hypo-osmolality and hyponatremia (principal); D70.9 Neutropenia, unspecified
CPT/HCPCS: 36415; 80048; G0475; 87389

== ENCOUNTER 2021-08-26 15:43 | Outpatient (CLI) | payer MEDICARE, MEDICAID | END 2021-08-26 15:44 | disposition left against medical advice (07) | LOC: EMS 15:43 | DX: S01.111A Laceration without foreign body of right eyelid and periocular area, initial encounter (principal); R42 Dizziness and giddiness; W18.39XA Other fall on same level, initial encounter; Y92.512 Supermarket, store or market as the place of occurrence of the external cause ==

== ENCOUNTER 2022-05-26 07:18 | Outpatient (CLI) | payer MEDICARE, MEDICAID ==
[2022-05-26 11:27] LABS: BASOPHILS % (AUTO) 0.6 %; EOSINOPHILS # (AUTO) 0.1 10^3/uL (0.0-0.7); EOSINOPHILS % (AUTO) 2.6 %; HCT - HEMATOCRIT 33.7 % (42.0-52.0); HGB - HEMOGLOBIN 10.9 g/dL (14.0-18.0); LYMPHOCYTES # (AUTO) 0.8 10^3/uL (1.5-3.5); LYMPHOCYTES % (AUTO) 22.2 %; MEAN CORPUSCULAR HEMOGLOBIN 29.8 pg (27.0-31.0); MEAN CORPUSCULAR HGB CONC 32.3 g/dL (32.0-36.0); MEAN CORPUSCULAR VOLUME 92.1 fL (80.0-94.0); MEAN PLATELET VOLUME 10.9 fL (7.4-11.4); MONOCYTES # (AUTO) 0.6 10^3/uL (0.0-1.0); MONOCYTES % (AUTO) 16.9 %; NEUTROPHILS % (AUTO) 57.4 %; PLT - PLATELET COUNT 123 10^3/uL (130-450); RED BLOOD COUNT 3.66 10^6/uL (4.70-6.10); RED CELL DISTRIBUTION WIDTH 14.4 % (12.0-15.0); WHITE BLOOD COUNT 3.4 x10^3/uL (4.8-10.8)
[2022-05-26 11:55] LABS: ALBUMIN 4.2 g/dL (3.2-5.5); ALBUMIN/GLOBULIN RATIO 1.2 (1.0-2.2); ALKALINE PHOSPHATASE 78 IU/L (42-121); ALT ALANINE AMINOTRANSFERASE 14 IU/L (10-60); AST ASPARTATE AMINOTRANSFERASE 33 IU/L (10-42); BILIRUBIN,TOTAL 1.2 mg/dL (0.2-1.0); BUN - BLOOD UREA NITROGEN 10 mg/dL (6-20); CALCIUM 9.6 mg/dL (8.5-10.3); CARBON DIOXIDE - CO2 24 mmol/L (21-32); CHLORIDE 89 mmol/L (101-111); CHOL/HDL RATIO 1.9 (<5.0); CHOLESTEROL 162 mg/dL; GFR - MDRD 92 (>89); GLUCOSE 115 mg/dL (70-100); HDL CHOLESTEROL 84 mg/dL; LDL CHOLESTEROL,CALCULATED 63 mg/dL; LDL/HDL RATIO 0.8 (<3.6); POTASSIUM 3.9 mmol/L (3.5-5.0); SODIUM 124 mmol/L (135-145); TOTAL PROTEIN 7.6 g/dL (6.7-8.2); TRIGLYCERIDES 74 mg/dL; URIC ACID 4.1 mg/dL (2.6-7.2); VLDL CHOLESTEROL 15 mg/dL
[2022-05-26 12:04] LABS: CREATININE,URINE 200.8 mg/dL
[2022-05-26 12:06] LABS: THYROID STIMULATING HORMONE 1.56 uIU/mL (0.34-5.60)
[2022-05-26 12:07] LABS: ESTIMATED AVERAGE GLUCOSE 103 mg/dL (70-100); HEMOGLOBIN A1c% 5.2 % (4.27-6.07)
[2022-05-26 12:09] LABS: MICROALBUMIN,URINE < 0.2 mg/dL (0-300.0)
[2022-05-26 17:56] LABS: FECAL OCCULT BLOOD (FIT) POSITIVE (NEGATIVE)
[2022-05-28 14:09] LABS: A/G RATIO 1.4 (0.7-1.7); ALBUMIN 4.1 g/dL (2.9-4.4); ALPHA-1-GLOBULIN 0.2 g/dL (0.0-0.4); ALPHA-2-GLOBULIN 0.5 g/dL (0.4-1.0); BETA GLOBULIN 0.9 g/dL (0.7-1.3); GAMMA GLOBULIN 1.5 g/dL (0.4-1.8); GLOBULIN TOTAL 3.1 g/dL (2.2-3.9); IMMUNOGLOBULIN A (IGA) 367 mg/dL (90-386); IMMUNOGLOBULIN G (IGG) 1206 mg/dL (603-1613); IMMUNOGLOBULIN M (IGM) 151 mg/dL (20-172); M-SPIKE Not Observed g/dL (Not Observed); PROTEIN TOTAL 7.2 g/dL (6.0-8.5)
== END 2022-05-26 07:19 | disposition home or self-care (01) ==
LOC: LAB.N 07:18
PROVIDERS: ATTEND Internal Medicine
DX: I42.8 Other cardiomyopathies (principal); R73.01 Impaired fasting glucose; G62.9 Polyneuropathy, unspecified; Z12.5 Encounter for screening for malignant neoplasm of prostate; M1A.029 Idiopathic chronic gout, unspecified elbow; Z12.11 Encounter for screening for malignant neoplasm of colon; I10 Essential (primary) hypertension
CPT/HCPCS: 36415; 80053; 80061; 82043; 82274; 82570; 82607; 82784; 83036; 84155; 84165; 84443; 84550; 85025; 86334; G0103; 83721; 84153

== ENCOUNTER 2022-09-07 19:14 | Inpatient (IN) | payer MEDICARE, MEDICAID ==
[2022-09-07 20:00] LABS: HCT - HEMATOCRIT 30.9 % (42.0-52.0); HGB - HEMOGLOBIN 10.5 g/dL (14.0-18.0); LYMPHOCYTES # (AUTO) 0.2 10^3/uL (1.5-3.5); LYMPHOCYTES % (AUTO) 4.9 %; MEAN CORPUSCULAR HEMOGLOBIN 30.1 pg (27.0-31.0); MEAN CORPUSCULAR VOLUME 88.5 fL (80.0-94.0); MEAN PLATELET VOLUME 9.5 fL (7.4-11.4); MONOCYTES # (AUTO) 0.5 10^3/uL (0.0-1.0); MONOCYTES % (AUTO) 11.5 %; NEUTROPHILS # (AUTO) 3.5 10^3/uL (1.5-6.6); NEUTROPHILS % (AUTO) 82.9 %; PLT - PLATELET COUNT 133 10^3/uL (130-450); RED BLOOD COUNT 3.49 10^6/uL (4.70-6.10); RED CELL DISTRIBUTION WIDTH 12.9 % (12.0-15.0); WHITE BLOOD COUNT 4.3 x10^3/uL (4.8-10.8)
--- NOTE | 2022-09-07 20:11 | ED Physician Documentation ---
PD HPI SEIZURE - Stated complaint Stated Complaint: SEIZURE/POSSIBLY FALL - Chief complaint Chief Complaint: Neuro - History obtained from History obtained from: Patient, Family - History of Present Illness Witnessed: Witnessed (by a young child who is a limited historian) Number of seizures: Single, Lasted minutes Description of seizure activity: Generalized, Tonic clonic Injury during seizure: Fell Associated symptoms: None History of seizures: Prior EtOH wdrawal sz Contributing factors: EtOH withdrawal - Additional information Additional information: This is a 62-year-old male with a past medical history of alcoholism With ongoing daily alcohol use (2-3 tall cans of 10% beer), hyponatremia, cardiomyopathy w/ most recent EF of 40%, and prior alcohol related seizure in 2020 presents with seizure activity at home. It this was not witnessed by any adults however the grandchild of the patient told his mom that he saw the patient shaking. When family members arrived the patient was confused but awake and breathing on his own. Over the course of the last hour or so since the initial seizure, the patient has been become progressively more awake and near baseline. When I initially evaluated the patient he had no acute concerns, states no headache, no vision changes, no neck pain, no extremity injuries. He has not been feeling ill recently, no fever or chills, no cough or URI symptoms, no chest pain or difficulty breathing, no abdominal pain, nausea, vomiting, diarrhea, or urinary symptoms. He states he did injure his tongue during the seizure but did not have loss of bowel or bladder. Shortly after my initial evaluation of the patient, we were called to the room as patient was having another seizure. He had a witnessed tonic-clonic seizure that lasted approximately 30 seconds And he was given Ativan. He did have tongue biting during this second seizure and lacerated the tongue. He is currently now postictal. Pt does drink beer everyday according to family. He states he drank a "sip" of beer this AM but nothing since then. Review of Systems Unable to obtain: Confused Constitutional: reports: Reviewed and negative Eyes: reports: Reviewed and negative Ears: reports: Reviewed and negative Nose: reports: Reviewed and negative Throat: reports: Reviewed and negative Cardiac: reports: Reviewed and negative Respiratory: reports: Reviewed and negative GI: reports: Reviewed and negative : reports: Reviewed and negative Skin: reports: Laceration (s) (tongue) Musculoskeletal: reports: Reviewed and negative Neurologic: reports: Seizure, Confused, Altered mental status Psychiatric: reports: Reviewed and negative Endocrine: reports: Reviewed and negative Immunocompromised: reports: Reviewed and negative PD PAST MEDICAL HISTORY - Past Medical History Past Medical History: Yes Cardiovascular: Congestive heart failure, Hypertension, [place] Respiratory: None Neuro: Seizure disorder (prior etoh related seizure) Endocrine/Autoimmune: None GI: None : None HEENT: None Psych: None, Other (alcoholism) Musculoskeletal: Osteoarthritis Derm: None - Past Surgical History Past Surgical History: Yes Ortho: Shoulder arthroplasty, Other - Present Medications Home Medications: Ambulatory Orders Medication Instructions Recorded Confirmed Diclofenac Sodium 01/25/18 Enalapril Maleate [Vasotec] 01/25/18 Furosemide 01/25/18 01/25/18 Metoprolol Succinate [Kapspargo 01/25/18 Sprinkle] Spironolactone 01/25/18 Vitamin E (Dl,Tocopheryl Acet) 01/25/18 [Vitamin E] methocarbamoL [Robaxin] 01/25/18 Cyanocobalamin (Vitamin B-12) 1,000 mcg PO 01/02/19 [Vitamin B-12] Folic Acid 1 mg PO QID 01/02/19 01/02/19 Multivitamin [Multivitamins] 1 tab PO DAILY 01/02/19 01/02/19 - Allergies Allergies/Adverse Reactions: Allergies Allergy/AdvReac Type Severity Reaction Status Date / Time No Known Drug Allergies Allergy Verified 09/07/22 19:36 - Social History Does the pt smoke?: No Smoking Status: Never smoker Does the pt drink ETOH?: Yes Does the pt have substance abuse?: No - Immunizations Immunizations are current?: Yes - POLST Patient has POLST: No PD ED PE NORMAL - Vitals Vital signs reviewed: Yes - General General: Other (Initially alert and oriented x3 and in no acute distress, subsequently had a briefs 15 to 30 seconds tonic-clonic seizure and was postictal.) - HEENT HEENT: PERRL, Ears normal, Moist mucous membranes, Pharynx benign, Other (Tongue bruising and laceration) - Neck Neck: Supple, no meningeal sign, No bony TTP, No adenopathy - Cardiac Cardiac: RRR, No murmur, No gallop, No rub, Strong equal pulses - Respiratory Respiratory: No respiratory distress, Clear bilaterally - Abdomen Abdomen: Normal bowel sounds, Soft, Non tender, Non distended - Back Back: No CVA TTP, No spinal TTP - Derm Derm: Normal color, Warm and dry, No rash - Extremities Extremities: No deformity, No tenderness to palpate, Normal ROM s pain, No edema, No calf tenderness / cord - Neuro Neuro: Alert and oriented X 3 (Initially alert and oriented x3 subsequently postictal.), machine stapler 2-12 intact (On initial exam), No motor deficit, No sensory deficit, Normal speech Eye Opening: Spontaneous Motor: Obeys Commands Verbal: Oriented GCS Score: 15 - Psych Psych: Normal mood, Normal affect - Free text exam Free text exam: Patient had a general tonic-clonic seizure lasting about 30 seconds with tongue biting that was witnessed by me. Results - Vitals Vitals: Vital Signs - 24 hr 09/07/22 09/07/22 09/07/22 19:25 19:49 20:18 Temperature 36.9 C Heart Rate 97 94 126 H Respiratory 16 18 31 H Rate Blood Pressure 138/84 H 120/92 H 115/84 H O2 Saturation 100 98 98 If not protocol : Oxygen Flow, liters/minute 09/07/22 09/07/22 20:22 20:33 Temperature Heart Rate 116 H 128 H Respiratory 29 H 29 H Rate Blood Pressure 134/107 H 111/94 H O2 Saturation 99 100 If not protocol 4 4 : Oxygen Flow, liters/minute Oxygen O2 Source Nasal cannula - Labs Labs: Laboratory Tests 09/07/22 09/07/22 09/07/22 19:34 19:40 19:40 WBC 4.3 L RBC 3.49 L Hgb 10.5 L Hct 30.9 L MCV 88.5 MCH 30.1 MCHC 34.0 RDW 12.9 Plt Count 133 MPV 9.5 Neut # (Auto) 3.5 Lymph # (Auto) 0.2 L Titus # (Auto) 0.5 Eos # (Auto) 0.0 Baso # (Auto) 0.0 Absolute Nucleated RBC 0.00 Nucleated RBC % 0.0 Sodium 127 L Potassium 3.7 Chloride 85 L Carbon Dioxide 23 Anion Gap 19.0 H BUN 22 H Creatinine 1.1 Estimated GFR (MDRD) 83 L Glucose 239 H POC Whole Bld Glucose 249 H Lactic Acid Calcium 9.8 Total Bilirubin 0.9 AST 38 ALT 17 Alkaline Phosphatase 102 Total Creatine Kinase 184 Total Protein 7.7 Albumin 4.1 Globulin 3.6 Albumin/Globulin Ratio 1.1 Lipase 27 Ethyl Alcohol < 5.0 09/07/22 19:53 WBC RBC Hgb Hct MCV MCH MCHC RDW Plt Count MPV Neut # (Auto) Lymph # (Auto) Titus # (Auto) Eos # (Auto) Baso # (Auto) Absolute Nucleated RBC Nucleated RBC % Sodium Potassium Chloride Carbon Dioxide Anion Gap BUN Creatinine Estimated GFR (MDRD) Glucose POC Whole Bld Glucose Lactic Acid 5.6 H* Calcium Total Bilirubin AST ALT Alkaline Phosphatase Total Creatine Kinase Total Protein Albumin Globulin Albumin/Globulin Ratio Lipase Ethyl Alcohol - Rads (name of study) No standard instances Relevant Findings:: Final report received PD Medical Decision Making - ED course Complexity details: reviewed old records, reviewed results, re-evaluated patient, considered differential, d/w patient, d/w family ED course: This is a 62-year-old male with a past medical history of alcoholism as well as hyponatremia and A single prior alcohol related seizure. He presents today after suspected seizure activity at home. On arrival here, the patient was initially awake and alert with a reassuring physical exam but 6 subsequently did have a seizure and was given 2 mg of IV Ativan. Labs were obtained which reveal a lactate of 5.7 likely due to seizure activity, he has a sodium of 127, Which is actually up from priors, labs otherwise consistent with his baseline. He was given a liter of normal saline and a CT Head was obtained which is negative for any acute findings. Chest x-ray is pending as well as urinalysis. Patient continues to be postictal and I recommend observation admission for alcohol withdrawal and seizure activity. I have updated the family and have signed out to the ED attending, Dr. Santizo. Hospitalist admission request pending. Departure - Departure Disposition: ED Place in Observation Clinical Impression: Seizure
[2022-09-07 20:12] LABS: ALBUMIN 4.1 g/dL (3.2-5.5); ALBUMIN/GLOBULIN RATIO 1.1 (1.0-2.2); ALKALINE PHOSPHATASE 102 IU/L (42-121); ALT ALANINE AMINOTRANSFERASE 17 IU/L (10-60); AST ASPARTATE AMINOTRANSFERASE 38 IU/L (10-42); BILIRUBIN,TOTAL 0.9 mg/dL (0.2-1.0); BUN - BLOOD UREA NITROGEN 22 mg/dL (6-20); CALCIUM 9.8 mg/dL (8.5-10.3); CARBON DIOXIDE - CO2 23 mmol/L (21-32); CHLORIDE 85 mmol/L (101-111); CK- CREATINE KINASE 184 IU/L (22-269); CREATININE 1.1 mg/dL (0.6-1.2); ETOH - ETHANOL < 5.0 mg/dL; GFR - MDRD 83 (>89); GLUCOSE 239 mg/dL (70-100); LIPASE 27 U/L (22-51); POTASSIUM 3.7 mmol/L (3.5-5.0); SODIUM 127 mmol/L (135-145); TOTAL PROTEIN 7.7 g/dL (6.7-8.2)
[2022-09-07] MEDS ORDERED: LORazepam 2 MG/ML VIAL ONE (20:21)
[2022-09-07] MEDS ORDERED: LORazepam 2 MG/ML VIAL IVP STA (20:22)
[2022-09-07] MEDS ORDERED: SODIUM CHLORIDE 0.9% 1,000 ML IV STA (20:22)
--- NOTE | 2022-09-07 21:55 | CT Report ---
PROCEDURE: HEAD WO INDICATIONS: multiple seizures TECHNIQUE: Noncontrast 4.5 mm thick angled axial sections acquired from the foramen magnum to the vertex. For r adiation dose reduction, the following was used: automated exposure control, adjustment of mA and/or kV according to patient size. COMPARISON: None. FINDINGS: Image quality: Excellent. CSF spaces: Basal cisterns are patent. No extra-axial fluid collections. Ventricles are normal in size and shape. Brain: No intracranial hemorrhage, mass, or mass effect. Kaplan-white matter interface appears preser jovi. Skull and face: Calvarium and visualized facial bones are intact, without suspicious lesions. Sinuses: Visualized sinuses and mastoids are clear. IMPRESSION: 1. No acute intracranial abnormality. Reviewed by: Jean Maurice MD on 09/07/2022 9:54 PM PDT Approved by: Jean Maurice MD on 09/07/2022 9:54 PM PDT Station ID: [id number]
[2022-09-07] MEDS ORDERED: LIDOCAINE 1% 2 ML VIAL SUBQ STA (21:59)
[2022-09-07] MEDS ORDERED: levETIRAcetam INJ 1,000 MG in SODIUM CHLORIDE 0.9% 100ML 100 ML IV STA (22:18)
--- NOTE | 2022-09-07 22:56 | HISTORY & PHYSICAL EXAMINATION ---
Chief Complaint - Chief Complaint Chief Complaint: Seizures History of Present Illness - Admitted From Admitted From:: Home - History Obtained From Records Reviewed: Yes History obtained from: Son and ER MD Exam Limitations: Patient is post inctal - History of Present Illness HPI Comment/Other: This is a 62-year-old male with a past medical history of alcoholism With ongoing daily alcohol use (2-3 tall cans of 10% beer), hyponatremia, cardiomyopathy w/ most recent EF of 40%, and prior alcohol related seizure in 2020 presents with seizure activity at home. It this was not witnessed by any adults however the grandchild of the patient told his mom that he saw the patient shaking. When family members arrived the patient was confused but awake and breathing on his own. Over the course of the last hour or so since the initial seizure, the patient has been become progressively more awake and near baseline. When I initially evaluated the patient he had no acute concerns, states no headache, no vision changes, no neck pain, no extremity injuries. He has not been feeling ill recently, no fever or chills, no cough or URI symptoms, no chest pain or difficulty breathing, no abdominal pain, nausea, vomiting, diarrhea, or urinary symptoms. He states he did injure his tongue during the seizure but did not have loss of bowel or bladder. Shortly after my initial evaluation of the patient, we were called to the room as patient was having another seizure. He had a witnessed tonic-clonic seizure that lasted approximately 30 seconds And he was given Ativan. He did have tongue biting during this second seizure and lacerated the tongue. He is currently now postictal. Pt does drink beer everyday according to family. He states he drank a "sip" of beer this AM but nothing since then. 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 no new complaints had had multiple issues with his heart and has low heart function Had similar episode over a year ago History - Past Medical History Cardiovascular: reports: Congestive heart failure, Hypertension, [place] Respiratory: reports: None Neuro: reports: Seizure disorder (prior etoh related seizure) Endocrine/Autoimmune: reports: None GI: reports: None : reports: None HEENT: reports: None Psych: reports: None, Other (alcoholism) Musculoskeletal: reports: Osteoarthritis Derm: reports: None MRSA Hx?: No - Past Surgical History Ortho: reports: Shoulder arthroplasty, Other - POLST Patient has POLST: No Meds/Allgy - Home Medications Home Medications: Ambulatory Orders Medication Instructions Recorded Confirmed Diclofenac Sodium 01/25/18 Enalapril Maleate [Vasotec] 01/25/18 Furosemide 01/25/18 01/25/18 Metoprolol Succinate [Kapspargo 01/25/18 Sprinkle] Spironolactone 01/25/18 Vitamin E (Dl,Tocopheryl Acet) 01/25/18 [Vitamin E] methocarbamoL [Robaxin] 01/25/18 Cyanocobalamin (Vitamin B-12) 1,000 mcg PO 01/02/19 [Vitamin B-12] Folic Acid 1 mg PO QID 01/02/19 01/02/19 Multivitamin [Multivitamins] 1 tab PO DAILY 01/02/19 01/02/19 - Allergies Allergies/Adverse Reactions: Allergies Allergy/AdvReac Type Severity Reaction Status Date / Time No Known Drug Allergies Allergy Verified 09/07/22 19:36 Review of Systems - Other Findings Other Findings: Unable to obtain as patient is post ictal Exam - Vital Signs Vital Signs: Vital Signs x48h Temp Pulse Resp BP Pulse Ox O2 Flow Rate 09/07/22 22:37 114 H 23 108/86 H 99 09/07/22 20:33 128 H 29 H 111/94 H 100 4 09/07/22 20:22 116 H 29 H 134/107 H 99 4 09/07/22 20:18 126 H 31 H 115/84 H 98 09/07/22 19:49 94 18 120/92 H 98 09/07/22 19:25 36.9 C 97 16 138/84 H 100 - Physical Exam General Appearance: positive: No acute distress, Other (Sleepy) Eyes Bilateral: positive: Normal inspection, PERRL Neck: positive: Nml inspection Respiratory: positive: No respiratory distress Cardiovascular: positive: Regular rate & rhythm Skin: positive: Color nml, No rash Extremities: positive: No pedal edema Sepsis Event Note (H) - Evaluation Current Stage of Sepsis: Ruled out Conclusion/Plan - Problem List (1) Seizure Conclusion/Plan: 62 yr male admitted with 1. Seizure start on Keppra, seizure precuations, ativan prn and also will start on Libriun standing dose 2. ETOH dependance socail worker to asssit with resources for AA and other help 3.hx of cardiomyopathy - Continue home meds 4.Hx of HTN continue home meds 5. Post ictal state stable monitor for now 6. DVT prophylaxis SCD This was a televideo assissted visit Patient and me were in different location, pateint and family informed and aware of this Patient Son consent obtained for this encounter - Lab Results Fish Bones: 09/07/22 19:40 09/07/22 19:40
--- NOTE | 2022-09-07 22:59 | XRAY Report ---
PROCEDURE: Chest 1 View X-Ray INDICATIONS: aspiration TECHNIQUE: One view of the chest was acquired. COMPARISON: Chest x-ray 07/10/2021, 05/05/2017. FINDINGS: Surgical changes and devices: A left glenohumeral joint prosthesis is redemonstrated. Lungs and pleura: No pleural effusions or pneumothorax. There are right infrahilar linear opacities likely reflecting vascular structures or atelectasis. There is a dense nodule redemonstrated within t he right upper lung zone consistent with a calcified granuloma. Mediastinum: Mediastinal contours appear normal. Heart size is normal. Bones and chest wall: No suspicious bony lesions. Overlying soft tissues appear unremarkable. IMPRESSION: 1. Right infrahilar opacities likely represent vascular crowding and atelectasis, but developing cons olidation cannot be fully excluded. Reviewed by: Jean Oleary MD on 09/07/2022 10:58 PM PDT Approved by: Jean Oleary MD on 09/07/2022 10:58 PM PDT Station ID: [id number]
[2022-09-07] MEDS ORDERED: MAGNESIUM SULFATE 2 GRAM 2 GM/50 ML BAG IV ONE (23:02)
[2022-09-07] MEDS ORDERED: ONDANSETRON 4 MG/2 ML VIAL IVP PRN (23:04)
[2022-09-08] MEDS: SODIUM CHLORIDE FLUSH 0.9% 10 ML SYRINGE IVP SCH ×3 (00:06→16:53)
[2022-09-08] MEDS: D5.45NS W/20 MEQ KCL 1,000 ML IV SCH ×2 (01:11→21:47)
[2022-09-08 03:37] LABS: MUDS CUTOFF CONCENTRATIONS CUTOFF CONC BELOW:
[2022-09-08 03:39] LABS: BILIRUBIN,URINE NEGATIVE (NEGATIVE); GLUCOSE, URINE (UA) NEGATIVE (NEGATIVE); KETONES,URINE (UA) TRACE mg/dL (NEGATIVE); LEUKOCYTE ESTERASE, URINE NEGATIVE (NEGATIVE); NITRITE,URINE NEGATIVE (NEGATIVE); OCCULT BLOOD,URINE NEGATIVE (NEGATIVE); PROTEIN,URINE NEGATIVE (NEGATIVE); UROBILINOGEN,URINE 1 (NORMAL) E.U./dL (NORMAL)
[2022-09-08 03:40] LABS: CLARITY,URINE CLEAR (CLEAR)
[2022-09-08 03:45] LABS: BACTERIA,URINE None Seen /HPF (None Seen); RBC,URINE None Seen /HPF (0-5); SQUAMOUS EPITHELIAL CELL,UR NONE SEEN (<= Few); WBC,URINE 0-3 /HPF (0-3)
[2022-09-08 03:48] LABS: AMPHETAMINE SCREEN,URINE NEGATIVE (NEGATIVE); BARBITURATE SCREEN,UR NEGATIVE (NEGATIVE); BENZODIAZEPINES SCREEN, URINE POSITIVE (NEGATIVE); COCAINE SCREEN URINE NEGATIVE (NEGATIVE); METHADONE SCREEN, URINE NEGATIVE (NEGATIVE); METHAMPHETAMINES SCREEN, URINE NEGATIVE (NEGATIVE); OPIATE SCREEN, URINE NEGATIVE (NEGATIVE); OXYCODONE SCREEN, URINE NEGATIVE (NEGATIVE); PROPOXYPHENE SCREEN, URINE NEGATIVE (NEGATIVE); THC CANNABINOID SCREEN, URINE POSITIVE (NEGATIVE); TRICYCLIC ANTIDEPRESSANT,URINE NEGATIVE (NEGATIVE)
[2022-09-08 05:42] LABS: BASOPHILS % (AUTO) 0.1 %; HGB - HEMOGLOBIN 8.3 g/dL (14.0-18.0); LYMPHOCYTES # (AUTO) 0.5 10^3/uL (1.5-3.5); LYMPHOCYTES % (AUTO) 6.9 %; MEAN CORPUSCULAR HEMOGLOBIN 29.5 pg (27.0-31.0); MEAN CORPUSCULAR HGB CONC 33.2 g/dL (32.0-36.0); MEAN PLATELET VOLUME 9.3 fL (7.4-11.4); MONOCYTES # (AUTO) 0.8 10^3/uL (0.0-1.0); MONOCYTES % (AUTO) 11.9 %; NEUTROPHILS # (AUTO) 5.7 10^3/uL (1.5-6.6); NEUTROPHILS % (AUTO) 80.7 %; PLT - PLATELET COUNT 99 10^3/uL (130-450); RED BLOOD COUNT 2.81 10^6/uL (4.70-6.10); WHITE BLOOD COUNT 7.1 x10^3/uL (4.8-10.8)
[2022-09-08 05:55] LABS: INR 1.1 (0.8-1.2); PT - PROTHROMBIN TIME 12.3 secs (9.9-12.6)
[2022-09-08 06:04] LABS: ALBUMIN 3.4 g/dL (3.2-5.5); ALBUMIN/GLOBULIN RATIO 1.1 (1.0-2.2); BILIRUBIN,TOTAL 0.9 mg/dL (0.2-1.0); CALCIUM 8.9 mg/dL (8.5-10.3); CREATININE 0.8 mg/dL (0.6-1.2); PHOSPHORUS 2.4 mg/dL (2.5-4.6); POTASSIUM 3.2 mmol/L (3.5-5.0); TOTAL PROTEIN 6.4 g/dL (6.7-8.2)
[2022-09-08] MEDS: ACETAMINOPHEN 325 MG TABLET PO PRN (08:40)
[2022-09-08] MEDS: PRENATAL VITAMIN TABLET PO SCH (08:41)
[2022-09-08] MEDS: THIAMINE 100 MG TABLET PO SCH (08:41)
[2022-09-08] MEDS: POTASSIUM CHLORIDE 20 MEQ TABLET PO SCH ×2 (08:41→16:46)
[2022-09-08] MEDS: SODIUM CHLORIDE FLUSH 0.9% 10 ML SYRINGE IVP PRN ×2 (11:20→21:20)
--- NOTE | 2022-09-08 11:35 | PHARMACY PROGRESS NOTE ---
- Best Possible Medication History Admit Date and Time: 09/07/22 3279 Processed by: Pharmacy Medication History completed: Yes Patient Interview: Completed Secondary Source(s): Prescription bottles (used meds from pillbox) As the person ultimately responsible for medication therapy, providers are able to order a medication from an existing home medication list in [facility] via the "Reconcile Routine" prior to Confirmation of that medication by director of sales support. Such practice is discouraged except when the physician, in their clinical judgment, deems that a medical need exists for a medication without regard to previous use.
[2022-09-08] MEDS: oxyCODONE 5 MG TABLET PO PRN ×2 (14:21→21:19)
[2022-09-08] MEDS: LIDOCAINE VISCOUS 2% 15 ML ORAL SYRINGE MM PRN ×2 (16:47→21:19)
--- NOTE | 2022-09-08 17:18 | PROVIDER PROGRESS NOTE ---
Progress Note September 08, 2022 5:04 PM I met with the patient and his son this morning. Saw the patient again this afternoon. He has no recollection of yesterday. He said it was all a blur. He knows where he is today, he knows he is in [place] in the hospital. He knows that it is August. But not the exact date. And he knows that he had a seizure from what everyone told him. His main problem right now is feeling foggy. And his tongue really hurts. Hurts enough that he does not want to eat. He does have a history of a previous seizure in 2020 with alcohol withdrawal as well. He states that he has been trying to cut back for his children sake. He is down to 1-1/2 cans of beer right now. Active Medications Acetaminophen (Acetaminophen 325 Mg Tablet) 650 mg PO Q4HR PRN PRN Reason: Pain 1 to 4, or Fever Last Admin: 09/08/22 08:40 Dose: 650 mg Lidocaine HCl (Lidocaine Viscous 2% 15 Ml Oral Syringe) 5 ml MM Q4H PRN PRN Reason: Mouth Sore Pain Last Admin: 09/08/22 16:47 Dose: 5 ml Ondansetron HCl (Ondansetron 4 Mg/2 Ml Vial) 4 mg IVP Q6HR PRN PRN Reason: Nausea / Vomiting Oxycodone HCl (Oxycodone 5 Mg Tablet) 5 mg PO Q4HR PRN PRN Reason: Pain 5 to 7 Last Admin: 09/08/22 14:21 Dose: 5 mg Potassium Chloride (Potassium Chloride 20 Meq Tablet) 20 meq PO BIDWM [facility] Stop: 09/09/22 08:01 Last Admin: 09/08/22 16:46 Dose: 20 meq Multivit/Folic Acid/Iron ( Vitamin Tablet) 1 tab PO DAILY [facility] Last Admin: 09/08/22 08:41 Dose: 1 tab Sodium Chloride (Sodium Chloride Flush 0.9% 10 Ml Syringe) 10 ml IVP PRN PRN PRN Reason: NEEDED PER PROVIDER ORDERS Last Admin: 09/08/22 11:20 Dose: 10 ml Sodium Chloride (Sodium Chloride Flush 0.9% 10 Ml Syringe) 10 ml IVP 0100,09 00,1700 [facility] Last Admin: 09/08/22 16:53 Dose: 10 ml Thiamine HCl (Thiamine 100 Mg Tablet) 100 mg PO DAILY [facility] Last Admin: 09/08/22 08:41 Dose: 100 mg Spironolactone 1 tab PO DAILY 01/25/[address] [Voltaren] 1 tab PO BID 09/08/22 Furosemide [Lasix] 1 tab PO WE 09/08/22 Ibuprofen 1 tab PO QID PRN 09/08/22 Ibuprofen [Motrin] 1 tab PO QID PRN 09/08/22 Losartan Potassium 1 tab PO DAILY 09/08/22 Metoprolol Succinate 1 tab PO DAILY 09/08/22 methocarbamoL [Methocarbamol] 1 tab PO QID PRN 09/08/22 Exam: Temperature has been between 37.0 and 37.6 today. Heart rate has been between 100-112. Blood pressure 100/67 right now, and was 110/89 at 11:45 in the morning. Respirations are 16, he is 97% on room air. He is an alert, oriented pleasant black male, 5 foot 8 inches tall and 66 kg. Well-nourished well-developed. Speech is with slurred leonid because of his tongue laceration that is quite large and crescent shaped in the middle of his tongue more on the right side than the left side. He is also bitten the lower lip, on the left side. It is bruised and swollen. Neck is supple Lungs are clear to auscultation and percussion without crackles rhonchi or wh eezing. He has no respiratory distress. Regular rate and rhythm on cardiac exam Abdomen is soft, nontender normal bowel sounds Extremities are without clubbing cyanosis or edema Neurologically he is alert and oriented to person place and time, has no focal deficits, no tremors, no tremulousness, no no diaphoresis. He is not hallucinating. Lab: Laboratory Tests 09/07/22 09/07/22 09/08/22 19:40 19:53 05:35 WBC 4.3 L 7.1 Hgb 10.5 L 8.3 L Hct 30.9 L 25.0 L Plt Count 133 99 L INR Sodium Potassium Chloride BUN Creatinine Lactic Acid 5.6 H* Calcium Phosphorus Magnesium Total Bilirubin AST ALT Alkaline Phosphatase 09/08/22 09/08/22 09/08/22 05:35 05:35 05:35 WBC Hgb Hct Plt Count INR 1.1 Sodium 130 L Potassium 3.2 L Chloride 93 L BUN 18 Creatinine 0.8 Lactic Acid 1.8 Calcium 8.9 Phosphorus 2.4 L Magnesium 2.0 Total Bilirubin 0.9 AST 30 ALT 12 Alkaline Phosphatase 82 Assessment/plan 1. Alcohol withdrawal seizure I explained to him that most patients with alcohol withdrawal seizures do not require prolonged antiseizure medications. But in his case he is now had a second seizure with a second episode of alcohol withdrawal. He is tapering down his alcohol on his own. Alcohol level is undetectable and his toxicology screen. So I am assuming his mild withdrawal is what caused the seizure a second time. Unfortunately he may need seizure medicines for the next year or so. In reviewing the patient's clinic chart, the tripper from May 2022 notes and his subjective history that the patient was hospitalized in [place] in 2021. Patient does not remember if he had a seizure or if he had syncope but he ended up falling, breaking his shoulder, and needing a shoulder replacement. In looking at Dr. Jorgensen's office visit note from July 2021, he notes that the patient had a seizure when visiting [place] in 2020. He was seen in the emergency room. When he had the seizure he had not been using alcohol and he did not report head trauma. Dr. Jorgensen referred him to neurology and a brain MRI but the patient had not followed through on that. Plan: Continue to monitor for signs and symptoms of seizures. They may or may not be related to alcohol withdrawal. Make sure he is on Keppra 500 mg p.o. twice daily and he may need to be increased to 750 mg p.o. twice daily. Ask for outpatient referral to neurology for EEG and neurology evaluation I will order the brain MRI w and w/o mell No driving. He says he already does not drive. He has not driven for years. 2. Alcohol Abuse. Son is at the bedside and encourages his dad for the sake of his family, and those that love him, that he really needs to stop drinking completely. Patient states that he is trying. I explained to him that he cannot have any alcohol at all and he is deeply disappointed. He was hoping that he could cut back to maybe 1 beer a day. I told him that is probably not likely. But I also echoed his son's recommendation that he seek some help. Plan: vitamin daily Thiamine 100 mg daily 3. Chronic systolic heart failure He has nonischemic cardiomyopathy and is followed by Dr. Keith lAlen. With his last visit in May, Dr. Allen wanted to repeat his echocardiogram. If his ejection fraction was reduced the patient was good after resume his previous medications. In 2010 the patient presented to [facility] in [place] and he had an ejection fraction of 26 to 30%. He had normal coronary arteries by cardiac cath. His cardiomyopathy was attributed to alcohol and hypertension. He had an echocardiogram here at [facility] May 05, 2017 and his ejection fraction improved to 50% with left ventricular hypertrophy. He has not had a follow-up echocardiogram in our hospital. And Dr. Aleln would like 1. Plan: Resume Lasix 20 mg on Tuesdays and Tuesday, But hold off on losartan 100 mg daily, metoprolol succinate 100 mg tablet daily as well as spironolactone 25 mg daily. His blood pressure has been normal today. I do not want to bottom out. These are on his home medication list. I will also order the echocardiogram 4. Hypertension Blood pressure has been normal here. His systolic has been as low as 100 today, but no higher than 114. His home medications have not been resumed. In view of the fact that his blood pressure is normotensive, I do not want to bottom him out and we will hold off on his losartan, metoprolol, and spironolactone. But I will give him his Lasix. 5. Tongue laceration I am asking pharmacy to mix up 5 cc of viscous lidocaine with 5 cc of warm water or salt water. Swish and spit that solution every 2-4 hours as needed for tongue pain. He says he can even swallow his own secretions with this. 6. Hypokalemia He received 10 mEq in the ER last night. Plan: Potassium chloride 20 mEq p.o. twice daily for 3 doses total. Recheck tomorrow morning. 7. Hyponatremia, chronic No cause noted in his old medical records but I am assuming he has alcoholic liver disease and/or his diurectics for CHF. His sodium is stable for him. With his visit to the cardiology office in May of this year his sodium was 124. Was an ER visit in 2020 his sodium was 118. No intervention on my part right now. Sodium was 127 and may have contributed to some of the seizure threshold being reduced. It is 130 this morning. 8. Lactic acidosis I do not feel there is infection involved. I think he has had a seizure, and he has alcoholic liver disease. It is now normal after hydration and Keppra 9. Fecal occult positive blood. He had a positive fit test in May of this year. He is referred to [facility] June 02, 2022. There is no report in the chart that he ever followed through. 10. Chronic pancytopenia since 2020. Etiology was unclear. He was seen by oncology August 2021. They postulated nutritional deficiency versus chronic liver disease due to prior alcohol abuse versus congestive hepatopathy versus medication such as nonsteroidals, sulfa drugs, Lasix versus direct bone marrow toxicity from alcohol. Lab work-up was done with ferritin, iron, B12, folate, copper, ceruloplasmin, hepatitis, haptoglobin, LDH, and testosterone. TSH was normal. An abdominal ultrasound was ordered. Serum protein electrophoresis was normal. Methylmalonic serum acid level was normal. HIV was nonreactive. He did not have an ultrasound. And there is no follow-up with oncology from that one visit.
[2022-09-08] MEDS ORDERED: levETIRAcetam 500 MG/5 ML UDC PO SCH (21:00)
[2022-09-08] MEDS: levETIRAcetam 250 MG TABLET PO SCH (21:59)
[2022-09-09] MEDS: SODIUM CHLORIDE FLUSH 0.9% 10 ML SYRINGE IVP SCH ×2 (00:01→07:49)
[2022-09-09 07:38] VITALS: BP 103/75
[2022-09-09] MEDS: PRENATAL VITAMIN TABLET PO SCH (07:47)
[2022-09-09] MEDS: levETIRAcetam 250 MG TABLET PO SCH (07:47)
[2022-09-09] MEDS: POTASSIUM CHLORIDE 20 MEQ TABLET PO SCH (07:47)
[2022-09-09] MEDS: ACETAMINOPHEN 325 MG TABLET PO PRN (07:48)
[2022-09-09] MEDS: THIAMINE 100 MG TABLET PO SCH (07:48)
[2022-09-09] MEDS: LIDOCAINE VISCOUS 2% 15 ML ORAL SYRINGE MM PRN (07:57)
[2022-09-09] MEDS ORDERED: FUROSEMIDE 20 MG TABLET PO SCH (09:00)
[2022-09-09] MEDS: oxyCODONE 5 MG TABLET PO PRN (09:06)
--- NOTE | 2022-09-09 10:12 | Discharge Plan ---
Discharge Plan Problem Reviewed?: Yes Disposition: Home, Self Care Condition: Fair Prescriptions: oxyCODONE [Roxicodone] 5 mg PO Q4HR PRN #20 tab PRN Reason: Pain 5 to 7 levETIRAcetam [Keppra] 500 mg PO BID #60 tab Thiamine [Vitamin B-1] 100 mg PO DAILY #30 tab Lidocaine Viscous 2% [Xylocaine Viscous 2%] 5 ml MM Q4H PRN #3 each PRN Reason: Mouth Sore Pain Diet: Regular Activity Restrictions: Activity as Tolerated Shower Restrictions: No Driving Restrictions: Yes (no driving) Health Concerns: You have a problem with alcohol abuse and alcohol addiction. You have been trying to slowly wean yourself off alcohol. You had a seizure or at least you passed out in [place] in 2020. With that you fell and broke your shoulder. With that seizure you were not using alcohol. [place] Because of the seizure history, you were referred to get an MRI of the brain and see a neurologist. You explained to me that you been busy and had other things to do so you never got around to it. In the recent few weeks, you have been trying to wean yourself off alcohol. And then you had another seizure at home. While in the emergency room you had a second seizure. Your CAT scan of your brain shows there is no bleeding, tumors, or a visualized focus of irritation. You have responded to Keppra, a seizure drug. Your alcohol level was zero so we are not sure or not if your seizures are from alcohol withdrawal. Plan of Treatment: 1. Please see your primary care provider, Dr. Jorgensen, in the next 1 to 2 weeks 2. He is already made the referral for neurology and an open MRI. Please follow through with those referrals and make an appointment. 3. A new prescription for seizures will be called into the pharmacy. It is Keppra 500 mg, 1 tablet twice a day 4. You cannot drink at all. Not even half a drink. It does not matter if it is no alcohol beer, regular beer, wine, or whiskey. 5. Please make sure you take thiamine 100 mg a day, and a multivitamin which is full of a lot of B vitamins. This helps a lot with neurological damage from alcohol. 6. You do have a history of heart disease with congestive heart failure. Your carbonation equipment tender wanted you to get an echocardiogram. You had one done here before discharge. We do not know the results. Make sure your carbonation equipment tender gets those results to review them. 7. I called the patient after discharge. I explained to him that his blood pressure was on the low side while here. I wanted him to hold off on taking his losartan and metoprolol for a couple of more days. Check his blood pressure and make sure it was okay for him to take his blood pressure. Aim for 120/70. I left a message on his answering machine. I then also called his son and spoke to his son on the phone. Care Goals: To remain clean and sober, permanently To have control of your seizures Assessment: Patient is alert, oriented, promises to follow through No Smoking: If you smoke, Please STOP! Call for help. Follow-up with: iFto Jorgensen MD [Provider Admit Priv/Credential] -
--- NOTE | 2022-09-09 18:39 | DISCHARGE SUMMARY ---
Discharge Summary Admit Date: 09/07/22 Discharge Date: 09/09/22 Discharging Provider: Maria Del Carmen Gaming MD Primary Care Provider: Fito Jorgensen MD Code Status: Attempt Resuscitation Condition at Discharge: Fair Discharge Disposition: 01 Home, Self Care - DIAGNOSES Discharge Diagnoses with Status of Each Condition: 1. Alcohol withdrawal seizure 2. Alcohol abuse 3. Chronic systolic heart failure 4. Nonischemic cardiomyopathy 5. Hypertension 6. Tongue laceration 7. Hypokalemia 8. Hyponatremia, chronic 9. Lactic acidosis resolved 10. Fecal occult blood positive stool in the past 11. Chronic pancytopenia since 2020 - HPI History of Present Illness: This is a 62-year-old male with a past medical history of alcoholism With ongoing daily alcohol use (2-3 tall cans of 10% beer), hyponatremia, cardiomyopathy w/ most recent EF of 40%, and prior alcohol related seizure in 2020 presents with seizure activity at home. It this was not witnessed by any adults however the grandchild of the patient told his mom that he saw the patient shaking. When family members arrived the patient was confused but awake and breathing on his own. Over the course of the last hour or so since the initial seizure, the patient has been become progressively more awake and near baseline. When I initially evaluated the patient he had no acute concerns, states no headache, no vision changes, no neck pain, no extremity injuries. He has not been feeling ill recently, no fever or chills, no cough or URI symptoms, no chest pain or difficulty breathing, no abdominal pain, nausea, vomiting, diarrhea, or urinary symptoms. He states he did injure his tongue during the seizure but did not have loss of bowel or bladder. Shortly after my initial evaluation of the patient, we were called to the room as patient was having another seizure. He had a witnessed tonic-clonic seizure that lasted approximately 30 seconds And he was given Ativan. He did have tongue biting during this second seizure and lacerated the tongue. He is currently now postictal. Pt does drink beer everyday according to family. He states he drank a "sip" of beer this AM but nothing since then. 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 no new complaints had had multiple issues with his heart and has low heart function Had similar episode over a year ago - Past Medical History Cardiovascular: reports: Congestive heart failure, Hypertension, NM Respiratory: reports: None Neuro: reports: Seizure disorder (prior etoh related seizure) Endocrine/Autoimmune: reports: None GI: reports: None : reports: None HEENT: reports: None Psych: reports: None, Other (alcoholism) Musculoskeletal: reports: Osteoarthritis Derm: reports: None MRSA Hx?: No - Past Surgical History Ortho: reports: Shoulder arthroplasty, Other - CONSULTS | PROCEDURES Procedures: Head CT had no acute intracranial abnormality Chest x-ray had right infrahilar opacities representing vascular crowding and atelectasis but consolidation cannot be excluded. Clinically the patient had no signs or symptoms of pneumonia. Echocardiogram had left ventricular wall thickness was normal. Left ventricular systolic function normal with an ejection fraction of 55 to 60%. Right ventricle normal. Left atrium and right atrium normal. No significant valvular heart disease. Normal right ventricular pressure at 35 mmHg. RVSP was 22 mm. - HOSPITAL COURSE Hospital Course: 1. Alcohol withdrawal seizure I explained to him that most patients with alcohol withdrawal seizures do not require prolonged antiseizure medications. But in his case he is now had a second seizure with a second episode of alcohol withdrawal. He is tapering down his alcohol on his own. Alcohol level is undetectable and his toxicology scr een. So I am assuming his mild withdrawal is what caused the seizure a second time. Unfortunately he may need seizure medicines for the next year or so. In reviewing the patient's clinic chart, the evp business development from May 2022 notes and his subjective history that the patient was hospitalized in [place] in 2021. Patient does not remember if he had a seizure or if he had syncope but he ended up falling, breaking his shoulder, and needing a shoulder replacement. In looking at Dr. Jorgensen's office visit note from July 2021, he notes that the patient had a seizure when visiting [place] in 2020. He was seen in the emergency room. When he had the seizure he had not been using alcohol and he did not report head trauma. Dr. Jorgensen referred him to neurology and a brain MRI but the patient had not followed through on that. I did try and do an MRI of the head while he was here. But the patient refused. He said he is claustrophobic and needs an open MRI. He promises to go back to Dr. Jorgensen and get another referral for an MRI and promises to follow through with neurology. I am not convinced that he has an alcohol withdrawal seizure since both times seizures are described as no alcohol involved.But I have sent him home on Keppra 500 mg p.o. twice daily. 2. Alcohol Abuse. Son is at the bedside and encourages his dad for the sake of his family, and those that love him, that he really needs to stop drinking completely. Patient states that he is trying. I explained to him that he cannot have any alcohol at all and he is deeply disappointed. He was hoping that he could cut back to maybe 1 beer a day. I told him that is probably not likely. But I also echoed his son's recommendation that he seek some help. He will be sent home on lula ine 100 mg a day, and a vitamin. 3. Chronic systolic heart failure He has nonischemic cardiomyopathy and is followed by Dr. Keith Allen. With his last visit in May, Dr. Allen wanted to repeat his echocardiogram. If his ejection fraction was reduced the patient was good after resume his previous medications. In 2010 the patient presented to [facility] in [place] and he had an ejection fraction of 26 to 30%. He had normal coronary arteries by cardiac cath. His cardiomyopathy was attributed to alcohol and hypertension. He had an echocardiogram here at [facility] May 05, 2017 and his ejection fraction improved to 50% with left ventricular hypertrophy. He has not had a follow-up echocardiogram in our hospital. And Dr. Allen would like 1. I resumed his Lasix on Tuesdays and Wednesdays. While in the hospital I did not give him metoprolol or losartan because of low blood pressure. He continues to have a low blood pressure at discharge. The patient is insistent that he has to take his medicines. But I told him that may he may be passing out because of low blood pressure. Echocardiogram done here shows intact ejection fraction. 4. Hypertension Blood pressure has been normal or low here. Blood pressure on the day of discharge was 100/69, at 105/68, 103/75. I am asking him to hold off on taking his blood pressure medicine at home. To only take the Lasix. 5. Tongue laceration I am asking pharmacy to mix up 5 cc of viscous lidocaine with 5 cc of warm water or salt water. Swish and spit that solution every 2-4 hours as needed for tongue pain. He says he can even swallow his own secretions with this.I have sent a prescription to the pharmacy for this. 6. Hypokalemia He received supplementation while in the hospital. 7. Hyponatremia, chronic No cause noted in his old medical records but I am assuming he has alcoholic liver disease and/or his diurectics for CHF. His sodium is stable for him. With his visit to the cardiology office in May of this year his sodium was 124. Was an ER visit in 2020 his sodium was 118. No intervention on my part right now. Sodium was 127 and may have contributed to some of the seizure threshold being reduced. It is 130 this morning. 8. Lactic acidosis I do not feel there is infection involved. I think he has had a seizure, and he has alcoholic liver disease. It is now normal after hydration and Keppra 9. Fecal occult positive blood. He had a positive fit test in May of this year. He is referred to [facility] June 02, 2022. T here is no report in the chart that he ever followed through. 10. Chronic pancytopenia since 2020. Etiology was unclear. He was seen by oncology August 2021. They postulated nutritional deficiency versus chronic liver disease due to prior alcohol abuse versus congestive hepatopathy versus medication such as nonsteroidals, sulfa drugs, Lasix versus direct bone marrow toxicity from alcohol. Lab work-up was done with ferritin, iron, B12, folate, copper, ceruloplasmin, hepatitis, haptoglobin, LDH, and testosterone. TSH was normal. An abdominal ultrasound was ordered. Serum protein electrophoresis was normal. Methylmalonic serum acid level was normal. HIV was nonreactive. He did not have an ultrasound. And there is no follow-up with oncology from that one visit. Greater than 30 minutes was spent coordinating discharge in this patient. At discharge she is alert, oriented slender black male. Well-groomed. Very eager to get out of the hospital. Temperature is 37.6. Heart rate 97. Blood pressure 103/75. Respirations 16. 97% on room air. He has clear lungs, regular rate and rhythm. No S3. No JVD. No edema. Abdomen is benign. Extremities have no edema. I want him to see Dr. Allen in the next 1 to 2 weeks. I also would like him to see his primary care provider in the next 1 to 2 weeks. He needs to follow- up on pancytopenia, a colonoscopy, MRI, and EEG as well as neurology consult - ALLERGIES Allergies/Adverse Reactions: Allergies Allergy/AdvReac Type Severity Reaction Status Date / Time No Known Drug Allergies Allergy Verified 09/07/22 19:36 - MEDICATIONS Home Medications: Ambulatory Orders Medication Instructions Recorded Confirmed Spironolactone 1 tab PO DAILY 01/25/18 09/08/[address] [Voltaren] 1 tab PO BID 09/08/22 09/08/22 Furosemide [Lasix] 1 tab PO TUWE 09/08/22 09/08/22 Ibuprofen 1 tab PO QID PRN 09/08/22 09/08/22 Ibuprofen [Motrin] 1 tab PO QID PRN 09/08/22 09/08/22 Losartan Potassium 1 tab PO DAILY 09/08/22 09/08/22 Metoprolol Succinate 1 tab PO DAILY 09/08/22 09/08/22 methocarbamoL [Methocarbamol] 1 tab PO QID PRN 09/08/22 09/08/22 Lidocaine Viscous 2% [Xylocaine 5 ml MM Q4H PRN #3 each 09/09/22 Viscous 2%] Thiamine [Vitamin B-1] 100 mg PO DAILY #30 tab 09/09/22 levETIRAcetam [Keppra] 500 mg PO BID #60 tab 09/09/22 oxyCODONE [Roxicodone] 5 mg PO Q4HR PRN #20 tab 09/09/22 - LABS Result Diagrams: 09/08/22 05:35 09/08/22 05:35 - SEPSIS Current Stage of Sepsis: Ruled out
== END 2022-09-09 13:00 | disposition home or self-care (01) | DRG 101 ==
LOC: ED 19:14 → MS3 23:04
PROVIDERS: ADMIT Internal Medicine; ATTEND Specialist
DX: R56.9 Unspecified convulsions (principal); G40.509 Epileptic seizures related to external causes, not intractable, without status epilepticus; F10.239 Alcohol dependence with withdrawal, unspecified; I50.22 Chronic systolic (congestive) heart failure; F10.20 Alcohol dependence, uncomplicated; I42.8 Other cardiomyopathies; I42.9 Cardiomyopathy, unspecified; E87.1 Hypo-osmolality and hyponatremia; I50.9 Heart failure, unspecified; E87.20 Acidosis, unspecified; D61.818 Other pancytopenia; I11.0 Hypertensive heart disease with heart failure; S01.512A Laceration without foreign body of oral cavity, initial encounter; X58.XXXA Exposure to other specified factors, initial encounter; Y92.538 Other ambulatory health services establishments as the place of occurrence of the external cause; E87.6 Hypokalemia; K70.9 Alcoholic liver disease, unspecified; R19.5 Other fecal abnormalities; I25.2 Old myocardial infarction
CPT/HCPCS: 36415; 70450; 71045; 80053; 80306; 81001; 82550; 83605; 83690; 83735; 84100; 85025; 85610; 93306; 96365; 96375; 99285; A9270; G0480; J2060; 80320; 87086

== ENCOUNTER 2022-10-05 07:11 | Outpatient (CLI) | payer MEDICARE, MEDICAID ==
[2022-10-05 11:55] LABS: BASOPHILS % (AUTO) 0.8 %; EOSINOPHILS # (AUTO) 0.3 10^3/uL (0.0-0.7); EOSINOPHILS % (AUTO) 8.4 %; HCT - HEMATOCRIT 27.6 % (42.0-52.0); HGB - HEMOGLOBIN 8.6 g/dL (14.0-18.0); LYMPHOCYTES % (AUTO) 27.2 %; MEAN CORPUSCULAR HGB CONC 31.2 g/dL (32.0-36.0); MEAN CORPUSCULAR VOLUME 89.9 fL (80.0-94.0); MEAN PLATELET VOLUME 10.7 fL (7.4-11.4); MONOCYTES # (AUTO) 0.7 10^3/uL (0.0-1.0); MONOCYTES % (AUTO) 18.9 %; NEUTROPHILS # (AUTO) 1.7 10^3/uL (1.5-6.6); NEUTROPHILS % (AUTO) 44.4 %; PLT - PLATELET COUNT 198 10^3/uL (130-450); RED BLOOD COUNT 3.07 10^6/uL (4.70-6.10); RED CELL DISTRIBUTION WIDTH 13.5 % (12.0-15.0); WHITE BLOOD COUNT 3.7 x10^3/uL (4.8-10.8)
[2022-10-05 12:30] LABS: FERRITIN 15.4 ng/mL (23.9-336.2)
[2022-10-05 12:33] LABS: FOLATE 22.46 ng/mL (5.90 - >24.8)
[2022-10-05 20:50] LABS: ALBUMIN 3.5 g/dL (3.2-5.5); ALBUMIN/GLOBULIN RATIO 0.9 (1.0-2.2); BILIRUBIN,TOTAL 0.4 mg/dL (0.2-1.0); CALCIUM 8.6 mg/dL (8.5-10.3); CREATININE 0.9 mg/dL (0.6-1.2); POTASSIUM 4.1 mmol/L (3.5-5.0); TOTAL PROTEIN 7.2 g/dL (6.7-8.2)
== END 2022-10-05 07:12 | disposition home or self-care (01) ==
LOC: LAB.N 07:11
PROVIDERS: ATTEND Physician Assistant
DX: D61.818 Other pancytopenia (principal); E87.1 Hypo-osmolality and hyponatremia
CPT/HCPCS: 36415; 80053; 82607; 82728; 82746; 83540; 84466; 85025

== ENCOUNTER 2022-10-08 07:12 | Outpatient (CLI) | payer MEDICARE, MEDICAID ==
--- NOTE | 2022-10-08 10:12 | Ultrasound Report ---
PROCEDURE: Abdomen Complete INDICATIONS: PANCYTOPENIA, ANEMIA TECHNIQUE: Real-time scanning was performed of the abdominal and retroperitoneal organs, with image documentatio n. COMPARISON: None. FINDINGS: Liver: Increased liver echogenicity, commonly mild hepatic steatosis. Gallbladder: Small stones and/or sludge present. No wall thickening or sonographic Petit sign. Biliary ducts: Intrahepatic bile ducts are non-dilated. Extrahepatic bile duct caliber measures 6 m m. Normal is 6-7 mm or less in diameter, or 10 mm or less post-cholecystectomy. Pancreas: Visualized portions of the pancreas are sonographically normal. Spleen: Spleen is normal in size and homogeneous in echotexture. Kidneys: Kidneys are normal in size and echotexture. Right kidney measures 10.8 cm long; left kidne y measures 9.7 cm long. No hydronephrosis or nephrolithiasis. No solid masses. No complex renal cys tic lesions which require follow-up. 1.9 cm simple appearing left renal cyst. Aorta: Visualized aorta is normal in caliber at less than 3 cm. Iliacs: Proximal common iliac arteries are normal in caliber at less than 2.5 cm. IVC: Intrahepatic inferior vena cava is patent. Miscellaneous: No free abdominal fluid. IMPRESSION: 1. The liver is echogenic, a nonspecific finding commonly seen in the setting of steatosis. 2. Small gallbladder stones and/or sludge present. No ultrasound evidence of acute cholecystitis. Reviewed by: Bryan Hebert MD on 10/08/2022 10:11 AM PDT Approved by: Bryan Hebert MD on 10/08/2022 10:11 AM PDT Station ID: [id number]
== END 2022-10-08 07:13 | disposition home or self-care (01) ==
LOC: DI 07:12
PROVIDERS: ATTEND Physician Assistant
DX: D61.818 Other pancytopenia (principal); D64.9 Anemia, unspecified

== ENCOUNTER 2023-04-26 07:22 | Outpatient (CLI) | payer MEDICARE, MEDICAID ==
[2023-04-26 12:11] LABS: BASOPHILS % (AUTO) 0.5 %; EOSINOPHILS # (AUTO) 0.2 10^3/uL (0.0-0.7); EOSINOPHILS % (AUTO) 3.7 %; HCT - HEMATOCRIT 32.6 % (42.0-52.0); HGB - HEMOGLOBIN 10.7 g/dL (14.0-18.0); LYMPHOCYTES # (AUTO) 1.2 10^3/uL (1.5-3.5); LYMPHOCYTES % (AUTO) 26.6 %; MEAN CORPUSCULAR HEMOGLOBIN 30.6 pg (27.0-31.0); MEAN CORPUSCULAR HGB CONC 32.8 g/dL (32.0-36.0); MEAN CORPUSCULAR VOLUME 93.1 fL (80.0-94.0); MEAN PLATELET VOLUME 9.8 fL (7.4-11.4); MONOCYTES # (AUTO) 0.9 10^3/uL (0.0-1.0); MONOCYTES % (AUTO) 19.9 %; NEUTROPHILS # (AUTO) 2.1 10^3/uL (1.5-6.6); NEUTROPHILS % (AUTO) 48.6 %; PLT - PLATELET COUNT 163 10^3/uL (130-450); RED CELL DISTRIBUTION WIDTH 12.5 % (12.0-15.0); WHITE BLOOD COUNT 4.3 x10^3/uL (4.8-10.8)
[2023-04-26 12:48] LABS: THYROID STIMULATING HORMONE 1.36 uIU/mL (0.34-5.60)
[2023-04-26 12:53] LABS: FERRITIN 235.6 ng/mL (23.9-336.2)
[2023-04-26 13:03] LABS: % IRON SATURATION 27 % (20-50); ALBUMIN 4.2 g/dL (3.2-5.5); ALBUMIN/GLOBULIN RATIO 1.6 (1.0-2.2); ALKALINE PHOSPHATASE 79 IU/L (42-121); ALT ALANINE AMINOTRANSFERASE 25 IU/L (10-60); AST ASPARTATE AMINOTRANSFERASE 27 IU/L (10-42); BILIRUBIN,TOTAL 0.3 mg/dL (0.2-1.0); BUN - BLOOD UREA NITROGEN 14 mg/dL (6-20); CALCIUM 9.6 mg/dL (8.5-10.3); CARBON DIOXIDE - CO2 24 mmol/L (21-32); CHLORIDE 98 mmol/L (101-111); CHOL/HDL RATIO 2.4 (<5.0); CHOLESTEROL 150 mg/dL; CREATININE 0.9 mg/dL (0.6-1.3); GFR - MDRD 104 (>89); GLUCOSE 102 mg/dL (74-104); HDL CHOLESTEROL 63 mg/dL; IRON 96 ug/dL (50-212); LDL CHOLESTEROL,CALCULATED 67 mg/dL; LDL/HDL RATIO 1.1 (<3.6); POTASSIUM 4.1 mmol/L (3.5-4.5); SODIUM 128 mmol/L (135-145); TOTAL IRON BINDING CAPACITY 360 ug/dL (250-450); TOTAL PROTEIN 6.9 g/dL (6.4-8.9); TRANSFERRIN 257 mg/dL (203-362); TRIGLYCERIDES 101 mg/dL (48-352); URIC ACID 3.7 mg/dL (4.4-7.6); VLDL CHOLESTEROL 20 mg/dL
[2023-04-26 13:05] LABS: ESTIMATED AVERAGE GLUCOSE 105 mg/dL (70-100); HEMOGLOBIN A1c% 5.3 % (4.27-6.07)
== END 2023-04-26 07:23 | disposition home or self-care (01) ==
LOC: LAB.N 07:22
PROVIDERS: ATTEND Internal Medicine
DX: I42.8 Other cardiomyopathies (principal); D61.818 Other pancytopenia; R73.01 Impaired fasting glucose; M1A.029 Idiopathic chronic gout, unspecified elbow; G62.9 Polyneuropathy, unspecified
CPT/HCPCS: 36415; 80053; 80061; 82607; 82728; 83036; 83540; 83721; 84443; 84466; 84550; 85025